=== PATIENT | female | born 1980 | race Caucasian/White ===

== ENCOUNTER 2017-06-04 21:21 | Emergency (ER) | payer OTHER, MEDICAID ==
[~2017-06-04] VITALS: Ht 154.9 cm; Wt 55.3 kg
[~2017-06-04 21:21] MED LIST: ALPRAZOLAM0.5 M1; ALPRAZOLAM1 MG PO; ALPRAZOLAM2 MG PO; BACTRIM DS 8001 TA1 PO; CHANTIX0.5 MG PO; CYANOCOBAL1000 MCG/1; DICLOFENAC 50MG50 MG PO; DICLOFENAC SODI75 M2 PO; ETODOLAC400 MG PO; FOLTX PO; GABAPENTIN800 MG; GABAPENTIN800 MG PO; GUMMI BEAR MUL1 EACH PO; HYDROMORPHONE2 MG PO; HYDROXYZINE HYD50 M1 PO; HYDROXYZINE50 MG PO; Hydroxyzine10 MG; Hydroxyzine10 MG PO; INDERAL10 MG PO; MEDROL 4MG. DOSE4 MG PO; NAPROSYN500 M1 PO; NAPROXEN SODIU500 MG PO; NITROGLYCERIN0.4 MG SL; NITROSTAT0.6 MG SL; NORCO 325 MG-51 TAB PO; NORVASC 10MG. T10 MG PO; OXYCODONE HCL15 MG PO; PAXIL20 MG PO; PERCOCET1 TA1 PO; PROPRANOLOL HCL20 MG PO; QUETIAPINE FUMA50 M1 PO; ROBAXIN500 M1 PO; SEROQUEL 100MG100 MG PO; TYLENOL WITH CO1 TA1 PO; VITAMIN E100 UNI2; ZOLOFT 50MG TAB50 MG PO
[2017-06-04] MEDS ORDERED: BACTRIM 400 MG-1 TAB PO (21:36)
[2017-06-04] MEDS ORDERED: Oxycodone5 MG NG (21:36)
--- OUTSIDE RECORDS SUMMARY | 2017-06-04 21:47 | External Medical Summary Rpt | CCD ---
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 AM 00 03 04 30 30 00 EA Ac LO 37 -0 -[address] ti DI 85 9- 7- 00 00 SI ve PI 21 20 20 47 DE NE 00 17 17 91 5 03 PH BE AR SY MA LA CY TE OF 10 CY NT MG HI AN TA A B IN C CE 65 03 04 20 10 00 EA Ac PH 86 -0 -[address] ti AL 20 9- 7- 00 00 SI ve EX 01 20 20 47 DE IN 90 17 17 90 5 86 PH 50 AR 0 MA MG CY CA OF PS CY UL NT E HI AN A IN C AL 00 03 04 60 30 00 EA Ac NM 78 -0 -[address] ti AZ 11 9- 7- 00 00 SI ve OL 07 20 20 47 DE AM 91 17 17 90 1 0 87 PH AR MG MA CY TA BL OF ET CY NT HI AN A IN C VA 65 02 03 4. 2 00 CL Ac LA 86 -0 -1 00 00 IN ti CY 20 9- 0- 0 00 IC ve CL 44 20 20 41 OV 83 17 17 54 PH IR 0 69 AR MA HC CY L 50 0 MG TA BL ET NM 00 02 03 20 5 00 CL Ac OM 59 -1 -1 .0 00 IN ti ET 15 0- 0- 00 00 IC ve HEWITT 30 20 20 42 ZI 71 17 17 18 PH NE 0 50 AR MA 25 CY MG TA BL ET NM 50 02 03 60 30 00 EA Ac OP 11 -0 -[address] ti RA 10 9- 0- 00 00 SI ve NO 46 20 20 47 DE LO 70 17 17 55 L 3 37 PH 10 AR MA MG CY TA OF BL CY ET NT HI AN A IN C SE 16 02 03 30 30 00 EA Ac RT 71 -0 -[address] ti RA 40 9- 0- 00 00 SI ve LI 61 20 20 47 DE NE 20 17 17 55 6 38 PH HC AR L MA 50 CY MG OF CY TA NT BL HI ET AN A IN C AM 00 02 03 30 30 00 EA Ac LO 37 -0 -[address] ti DI 85 9- 0- 00 00 SI ve PI 21 20 20 47 DE NE 00 17 17 55 5 39 PH BE AR SY MA LA CY TE OF 10 CY NT MG HI AN TA A B IN C AL 00 02 03 60 30 00 EA Ac NM 78 -0 -[address] ti AZ 11 9- 0- 00 00 SI ve OL 07 20 20 47 DE AM 91 17 17 55 1 0 40 PH AR MG MA CY TA BL OF ET CY NT HI AN A IN C 02 03 60 30 00 EA Ac BA 87 -0 -[address] ti PE 70 9- 0- 00 00 SI ve NT 22 20 20 47 DE IN 30 17 17 55 5 35 PH 30 AR 0 MA MG CY CA OF PS CY UL NT E HI AN A IN C AL 00 01 02 42 14 00 EA Ac NM 78 -2 -[address] ti AZ 11 6- 4- 00 00 SI ve OL 07 20 20 47 DE AM 91 17 17 38 1 0 81 PH AR MG MA CY TA BL OF ET CY NT HI AN A IN C GA 16 01 02 14 14 00 EA Ac BA 71 -2 -[address] ti PE 40 6- 4- 00 00 SI ve NT 66 20 20 47 DE IN 10 17 17 38 1 86 PH 10 AR 0 MA MG CY CA OF PS CY UL NT E HI AN A IN C IB 53 01 02 90 30 00 EA Ac UP 74 -2 -[address] ti RO 60 6- 4- 00 00 SI ve FE 46 20 20 47 DE N 50 17 17 38 60 5 87 PH 0 AR MG MA CY TA BL OF ET CY NT HI AN A IN C DI 00 01 02 30 15 00 EA Ac CL 22 -1 -[address] ti OF 82 4- 0- 00 00 SI ve EN 55 20 20 47 DE AC 09 17 17 24 6 41 PH SO AR D MA EC CY 50 OF CY MG NT HI TA AN B A IN C ESPINOZA 53 01 02 20 10 00 EA Ac LF 74 -1 -[address] ti AM 60 4- 0- 00 00 SI ve ET 27 20 20 47 DE HO 20 17 17 24 XA 5 43 PH ZO AR LE MA -T CY MP OF DS CY NT TA HI BL AN ET A IN C CI 16 01 02 20 10 00 EA Ac NM 71 -1 -[address] ti OF 40 2- 0- 00 00 SI ve LO 65 20 20 47 DE XA 20 17 17 22 CI 4 47 PH N AR HC MA L CY 50 0 OF MG CY NT TA HI B AN A IN C AL 00 01 02 42 14 00 EA Ac NM 78 -1 -[address] ti AZ 11 2- 0- 00 00 SI ve OL 07 20 20 47 DE AM 91 17 17 22 1 0 48 PH AR MG MA CY TA BL OF ET CY NT HI AN A IN C GA 16 01 02 14 14 00 EA Ac BA 71 -1 -[address] ti PE 40 2- 0- 00 00 SI ve NT 66 20 20 47 DE IN 10 17 17 22 1 52 PH 10 AR 0 MA MG CY CA OF PS CY UL NT E HI AN A IN C IB 53 01 02 40 10 00 EA Ac UP 74 -1 -[address] ti RO 60 2- 0- 00 00 SI ve FE 46 20 20 47 DE N 50 17 17 22 60 5 53 PH 0 AR MG MA CY TA BL OF ET CY NT HI AN A IN C NM 65 01 02 20 5 00 EA Ac OM 16 -1 -[address] ti ET 20 7- 0- 00 00 SI ve HEWITT 52 20 20 47 DE ZI 11 17 17 27 NE 1 75 PH AR 25 MA CY MG OF TA CY BL NT ET HI AN A IN C ESPINOZA 53 12 01 20 10 00 EA Ac LF 74 -2 -[address] ti AM 60 9- 7- 00 00 SI ve ET 27 20 20 47 DE HO 20 16 17 06 XA 5 14 PH ZO AR LE MA -T CY MP OF DS CY NT TA HI BL AN ET A IN C AL 00 12 01 28 14 00 EA Ac NM 78 -2 -[address] ti AZ 11 9- 7- 00 00 SI ve OL 08 20 20 47 DE AM 90 16 17 06 2 5 15 PH AR MG MA CY TA BL OF ET CY NT HI AN A IN C ET 00 12 01 20 10 00 EA Ac OD 18 -1 -[address] ti OL 50 9- 3- 00 00 SI ve AC 67 20 20 46 DE 50 16 17 94 40 1 71 PH 0 AR MG MA CY TA BL OF ET CY NT HI AN A IN C OX 53 12 01 6. 3 00 EA Ac YC 74 -1 -[address] ti OD 60 9- 3- 0 00 SI ve ON 20 20 20 46 DE E- 40 16 17 95 AC 1 01 PH ET AR AM MA IN CY OP HE OF N CY 10 NT -3 HI 25 AN A IN C NM 50 12 01 60 30 00 EA Ac OP 11 -2 -[address] ti RA 10 1- 3- 00 00 SI ve NO 46 20 20 46 DE LO 70 16 17 97 L 3 77 PH 10 AR MA MG CY TA OF BL CY ET NT HI AN A IN C AM 68 12 01 30 30 00 EA Ac LO 38 -2 -[address] ti DI 20 1- 3- 00 00 SI ve PI 12 20 20 46 DE NE 30 16 17 97 5 78 PH BE AR SY MA LA CY TE OF 10 CY NT MG HI AN TA A B IN C AM 68 12 01 14 14 00 EA Ac LO 38 -0 -[address] ti DI 20 8- 9- 00 00 SI ve PI 12 20 20 46 DE NE 30 16 17 81 5 45 PH BE AR SY MA LA CY TE OF 10 CY NT MG HI AN TA A B IN C SE 16 12 01 14 14 00 EA Ac RT 71 -0 -[address] ti RA 40 8- 9- 00 00 SI ve LI 61 20 20 46 DE NE 20 16 17 81 6 46 PH HC AR L MA 50 CY MG OF CY TA NT BL HI ET AN A IN C NM 50 12 01 28 14 00 EA Ac OP 11 -0 -[address] ti RA 10 8- 9- 00 00 SI ve NO 46 20 20 46 DE LO 70 16 17 81 L 3 47 PH 10 AR MA MG CY TA OF BL CY ET NT HI AN A IN C NM 68 12 01 20 5 00 CL Ac OM 38 -0 -0 .0 00 IN ti ET 20 8- 9- 00 00 IC ve HEWITT 04 20 20 41 ZI 11 16 17 38 PH NE 0 94 AR MA 25 CY MG TA BL ET VA 45 12 01 4. 2 00 CL Ac LA 96 -0 -0 00 00 IN ti CY 30 8- 9- 0 00 IC ve CL 55 20 20 41 OV 80 16 17 54 PH IR 8 69 AR MA HC CY L 50 0 MG TA BL ET OX 47 12 01 30 10 00 CL Ac YC 78 -0 -0 .0 00 IN ti OD 10 8- 9- 00 00 IC ve ON 23 20 20 41 E- 00 16 17 57 PH AC 5 16 AR ET MA AM CY IN OP HE N 10 -3 25 00 03 05 01 30 30 HO 99 CL Ac 37 -0 -0 .0 PK 34 AR ti 83 6- 7- 00 IN 35 KE ve 47 20 20 S [address] DE 1 UG RE K CO J IN C 49 02 04 01 90 30 HO 99 CL Ac 88 -1 -2 .0 PK 27 AR ti 40 2- 3- 00 IN 12 KE ve 77 20 20 S [address] CLIFFORD 5 UG RE K CO J IN C FL 50 03 04 01 30 30 HO 99 CL Ac UO 11 -0 -2 .0 PK 34 AR ti XE 10 6- 3- 00 IN 34 KE ve TI 64 20 20 S NE [address] DE 1 UG RE HC K L CO J 10 IN MG C CA PS UL E NM 68 01 04 01 40 10 HO 99 CA Ac OM 38 -1 -2 .0 PK 20 MP ti ET 20 6- 3- 00 IN 12 BE ve HEWITT 04 20 20 S LL ZI [address] NE 1 UG BE RR 25 CO Y A MG IN C TA BL ET 49 03 04 00 60 30 HO 99 CL Ac 88 -2 -0 .0 PK 42 AR ti 40 7- 9- 00 IN 14 KE ve 54 20 20 S [address] DE 0 UG RE K CO J IN C EN 60 03 04 00 20 3 HO 99 CL Ac DO 95 -2 -0 .0 PK 42 AR ti CE 10 7- 9- 00 IN 15 KE ve T 60 20 20 S 5- [address] CLIFFORD 32 5 UG RE 5 K TA CO J BL ET IN C OX 00 03 03 00 30 3 WI 26 CL Ac YC 60 -1 -2 .0 LS 31 AR ti OD 34 3- 6- 00 ON 61 KE ve ON 99 20 20 E- [address] SARMIENTO 8 UG RE ET K AM IN J IN C OP HE N 5- 32 5 53 03 03 00 30 10 WI 26 CL Ac 74 -1 -2 .0 LS 31 AR ti 60 3- 6- 00 ON 60 KE ve 13 20 [address] CLIFFORD 5 UG RE K IN J C VA 00 03 03 00 21 7 HO 99 CL Ac LT 17 -0 -1 .0 PK 34 AR ti RE 30 6- 2- 00 IN 36 KE ve X 56 20 20 S [address] CLIFFORD GM 4 UG RE K CA CO J PL ET IN C FL 00 03 03 00 1. 1 HO 99 CL Ac UC 17 -0 -1 00 PK 34 AR ti ON 25 6- 2- 0 IN 32 KE ve AZ 41 20 20 S OL [address] MADDOX 9 UG RE 15 K 0 CO J MG IN TA C BL ET FL 50 03 03 00 30 30 HO 99 CL Ac UO 11 -0 -1 .0 PK 34 AR ti XE 10 6- 2- 00 IN 34 KE ve TI 64 20 20 S NE [address] CLIFFORD 1 UG RE HC K L CO J 10 IN MG C CA PS UL E 00 03 03 00 30 30 HO 99 CL Ac 37 -0 -1 .0 PK 34 AR ti 83 6- 2- 00 IN 35 KE ve 47 20 20 S [address] CLIFFORD 1 UG RE K CO J IN C PO 24 03 03 00 10 10 HO 99 HEWITT Ac LY 20 -0 -1 .0 PK 34 RV ti MY 80 6- 2- 00 IN 37 EY ve XI 31 20 20 S N [address] BELLE B- 0 UG DI TM P CO EY E IN DR C OP S PE 00 02 02 00 28 7 HO 99 AL Ac NI 78 -1 -2 .0 PK 26 LE ti CI 11 1- 6- 00 IN 87 N ve LL 65 20 20 S BR IN [address] GALO 1 UG DO VK N CO I 50 0 IN MG C TA BL ET 00 02 02 00 24 4 WI 26 MO Ac 59 -2 -2 .0 LS 02 RR ti 10 0- 6- 00 ON 73 IS ve 54 20 [address] REAVES 5 UG BE RT IN H C 49 02 02 00 90 30 HO 99 CL Ac 88 -1 -2 .0 PK 27 AR ti 40 2- 6- 00 IN 12 KE ve 77 20 20 S [address] CLIFFORD 5 UG RE K CO J IN C ME 59 02 02 00 1. 90 CL [address] 76 -1 -2 00 IN 74 AR ti OX 24 0- 6- 0 IC 09 KE ve YP 53 20 20 RO 70 09 09 PH DE GE [address] MA K ER CY J ON E 15 0 MG /M L FL 68 02 02 00 1. 1 CL 18 CL Ac UC 46 -1 -2 00 IN 74 AR ti ON 20 0- 6- 0 IC 08 KE ve AZ 10 20 20 OL 34 09 09 PH DE E 0 AR RE 15 MA K 0 CY J MG TA BL ET TR 65 02 02 00 30 5 HO 99 CL Ac AM 16 -1 -2 .0 PK 27 AR ti AD 20 2- 6- 00 IN 14 KE ve OL 62 20 20 S [address] CLIFFORD HC 1 UG RE L K 50 CO J MG IN C TA BL ET TR 65 01 02 00 30 7 SO 30 Ac AM 16 -2 -1 .0 PE 43 LL ti AD 20 8- 2- 00 RS 34 AF ve OL 62 20 20 LO 71 09 09 FA R HC 1 AR OS L LY IA [address] M MG UG TA BL ET OX 00 01 02 00 40 3 CV 49 CA Ac YC 40 -2 -1 .0 S 96 MP ti OD 60 4- 2- 00 PH 88 BE ve ON 51 20 20 AR LL E- 20 09 09 MA AC 5 CY BE ET RR AM #3 Y IN 01 A OP 6 HE N 5- 32 5 AZ 59 01 02 00 6. 5 CV 49 CA Ac IT 76 -2 -1 00 S 96 MP ti HR 23 4- 2- 0 PH 89 BE ve OM 06 20 20 AR LL YC 00 09 09 MA IN 1 CY BE RR 25 #3 Y 0 01 A MG 6 TA BL ET 00 01 02 00 30 30 CV 49 CA Ac 37 -2 -1 .0 S 96 MP ti 83 4- 2- 00 PH 90 BE ve 47 20 20 AR LL 50 09 09 MA 1 CY BE RR #3 Y 01 A 6 IB 55 01 02 00 40 10 CV 49 CA Ac UP 11 -2 -1 .0 S 96 MP ti RO 10 4- 2- 00 PH 91 BE ve FE 68 20 20 AR LL N 40 09 09 MA 80 5 CY BE 0 RR MG #3 Y 01 A TA 6 BL ET FL 50 01 02 00 30 30 HO 99 CL Ac UO 11 -3 -1 .0 PK 23 AR ti XE 10 0- 2- 00 IN 36 KE ve TI 64 20 20 S NE [address] CLIFFORD 1 UG RE HC K L CO J 10 IN MG C CA PS UL E 49 01 02 00 40 13 HO 99 CL Ac 88 -3 -1 .0 PK 23 AR ti 40 0- 2- 00 IN 37 KE ve 77 20 20 S [address] CLIFFORD 5 UG RE K CO J IN C NM 68 01 01 00 40 10 HO 99 CA Ac OM 38 -1 -3 .0 PK 20 MP ti ET 20 6- 0- 00 IN 12 BE ve HEWITT 04 20 20 S LL ZI [address] MAXWELL 1 UG BE RR 25 CO Y A MG IN C TA BL ET 59 11 01 00 30 30 CL 18 Ac 63 -2 -3 .0 IN 56 LL ti 00 0- 0- 00 IC 97 AF ve 41 20 20 LO 43 08 09 PH R 5 AR OS MA IA CY S M CL 00 01 01 00 15 8 CL 18 Ac OT 16 -1 -3 .0 IN 56 LL ti RI 80 3- 0- 00 IC 93 AF ve MA 25 20 20 LO ZO 81 09 09 PH R LE 5 AR OS -B MA IA ET CY S AM M ET HEWITT SO NE CR M AZ 50 01 01 00 6. 5 CL 18 Ac IT 11 -1 -3 00 IN 56 LL ti HR 10 3- 0- 0 IC 94 AF ve OM 78 20 20 LO YC 76 09 09 PH R IN 6 AR OS MA IA 25 CY S 0 M MG TA BL ET 60 01 01 00 24 12 CL 18 Ac 25 -1 -3 0. IN 56 LL ti 80 3- 0- 00 IC 95 AF ve 23 20 20 0 LO 91 09 09 PH R 6 AR OS MA IA CY S M 60 11 12 00 24 12 CA 65 Ac 25 -2 -0 0. RL 02 LL ti 80 5- 4- 00 IS 90 AF ve 23 20 20 0 LE LO [address] OS UG IA S IN M C 59 11 12 00 30 30 CA 65 Ac 63 -2 -0 .0 RL 00 LL ti 00 0- 4- 00 IS 92 AF ve 41 20 20 LE LO [address] OS UG IA S IN M C AZ 00 11 12 00 6. 5 CA 65 Ac IT 09 -2 -0 00 RL 02 LL ti HR 37 5- 4- 0 IS 89 AF ve OM 14 20 20 LE LO YC 61 [address] OS UG IA 25 S 0 IN M MG C TA BL ET PE 00 11 12 00 30 7 CA 65 Ac NI 78 -2 -0 .0 RL 00 LL ti CI 11 0- 4- 00 IS 91 AF ve LL 65 20 20 LE LO IN [address] OS VK UG IA S 50 IN M 0 C MG TA BL ET Procedures Procedure DOS Code Location Performer Comment [facility] 5451 [facility] LYSIS 9 [facility] PERITONEA L ADHESIONS OTH BILAT 6629 [facility] ENDO 9 [facility] DE[facility]/O INC INC CCLUSION FALLOP TUBES LOW 741 [facility] CERVICAL 9 [facility] SECTION Encounters Encounter Start End Date Code Location Performer Type Date [facility] - 7 7 [facility] - 7 7 [facility] JES[facility] - 7 7 [facility]ES[facility] - 7 7 [facility] - 7 7 [facility] - 7 7 [facility]ES[facility] - 7 7 [facility]ES[facility] - 7 7 [facility] - 7 7 [facility] - 7 7 [facility] JESUS - 7 7 [facility] - 7 7 [facility] - 7 7 [facility] - 7 7 [facility] - 7 7 [facility] - 6 6 [facility] - 6 6 [facility] - 6 6 [facility] - 6 6 [facility] - 6 6 [facility] - 6 6 [facility] - 6 6 [facility] - 6 6 [facility] - 6 6 [facility]ES[facility] - 6 6 [facility] - 6 6 [facility] - 6 6 [facility] - 6 6 [facility] - 5 5 [facility] - 5 5 [facility] - 9 9 [facility] [place] - 9 9 [facility] [place] [address] [facility] [place] [address] [facility] [place] [address] [facility]
--- OUTSIDE RECORDS SUMMARY | 2017-06-04 21:47 | External Medical Summary Rpt | CCD ---
Author Author , RIGOBERTO Organization DANIELALYSSA Address Unknown Phone Care Team Providers Care Tarper Name Role Phone [employer] Unavailable Unavailable INC, [employer] JOSSY PARIKH, KATI, Unavailable Unavailable BENSON DAVIS Unavailable Unavailable [facility] Un[facility] Un[facility], [facility] BRIAN RIVERA, Unavailable Unavailable BRIAN RIVERA [facility], Unavailable Unavailable [facility] JONES MILES, Unavailable Unavailable [facility] Unavailable [facility], Unavailable [facility]available [facility] Unavailable Unavailable [place], [facility] Unavailable Unavailable [id number], Unavailable Unavailable [facility] Unavailable Unavailable [facility]ATION [facility], [facility] Unavailable Unavailable INC, [facility] Unavailable Unavailable HOSPITAL P, [facility], Unavailable Unavailable [facility], Unavailable Unavailable [facility] ARNAV MCNALLY Unavailable Unavailable [facility], [facility] Un[facility], [facility] Unavailable Unavailable [facility], [facility] SHAILESH CASH Unavailable Unavailable SHAILESH LOW, Unavailable Unavailable LAURA KIM, Unavailable Unavailable LAURA METZGER ROBERT, Unavailable Unavailable EMILIANO VALENCIA [facility] Unavailable Unavailable AMBULANCE SE, [facility] NICHOLAS, Unavailable Unavailable NICHOLAS VALDES EVELYN [facility] Unavailable [facility] KALEN RIVAS MD Unavailable Unavailable CONSULTING SERVKALEN MD CON[facility], Unavailable Unavailable [facility], [facility] Unavailable Unavailable LAB, [facility]OLOGY & [facility], Unavailable [facility]available [facility] Unavailable Unavailable [facility], [facility], Unavailable Unavailable [facility] THANIA LUI, Unavailable Unavailable THANIA LUI [facility], Unavailable Unavailable [facility] Purpose Continuity of Care Document - 05-10-2008 through 2016 Problems Code Diagnosis DOS Provider Status Z0100 ENCOUNTER 04-16-2017 [facility] EXAM EYES & VISION W/O ABNORMAL FIND R69 ILLNESS 03-05-2017 [facility] UNSPECIFIED TRANSPORTAT ION SER L600 INGROWING 02-17-[address] [facility] NAIL PHYSICIANS GROUP [id number] PAIN IN 01-27-2017 [facility] [id number] SPRAIN 01-27-2017 [facility]NSPECIFIED [facility] SITE RT INC KNEE INITIAL ENCNTR H8263ND UNS INJURY 01-27-2017 [facility] RT LOWER MEDICAL LEG INITIAL IMAGING ASS ENCOUNTER M542 CERVICALGIA 01-02-2017 [facility] M545 LOW BACK 01-02-2017 [facility] PAIN [facility] INC M791 MYALGIA 01-02-2017 [facility], [facility] G541 LUMBOSACRAL 12-30-2016 [facility] PLEXUS [facility] DISORDERS INC U16550 PAIN IN 12-30-2016 [facility] RIGHT LEG [facility] INC S19805 PAIN IN 12-27-2016 [facility]IP [facility] R200 ANESTHESIA 12-27-2016 [facility] OF SKIN [facility]ICAL [facility] R0781 PLEURODYNIA 12-11-[address] [facility] PHYSICIANS GROUP R079 CHEST PAIN 12-07-2016 [facility] UNSPECIFIED [facility]ICAL IM[facility]ING ASS [id number] CONTUSION 12-07-2016 [facility] LEFT FRONT PHYSICIANS, WALL THORAX PLLC INITIAL ENC M461 SACROILIITI 11-04-2016 [facility] S NOT [facility] ELSEWHERE INC CLASSIFIED [id number] MUSCLE 10-22-[address] [facility] WASTING & PHYSICIANS ATROPHY NEC GROUP RIGHT THIGH V98138 MUSCLE 10-22-[address] [facility] WASTING & PHYSICIANS ATROPHY NEC GROUP RIGHT LOWER LEG K13329 OTHER LONG 10-15-2016 [facility] TERM [facility] CURRENT INC DRUG THERAPY W06896 PAIN IN 10-05-2016 [facility] LEFT ANKLE [facility] INC M5412 RADICULOPAT 09-30-2016 [facility] HY CERVICAL [facility] REGION INC M5416 RADICULOPAT 09-30-2016 [facility] HY LUMBAR [facility] REGION INC M5431 SCIATICA 09-12-[address] [facility] RIGHT SIDE PHYSICIANS GROUP M549 DORSALGIA 09-12-[address] [facility] UNSPECIFIED PHYSICIANS GROUP R350 FREQUENCY 09-12-2016 [facility] MICTURITION INC R102 PELVIC AND 08-16-[address] [facility] PERINEAL PHYSICIANS PAIN GROUP I10 ESSENTIAL 07-20-2016 [facility] HYPERTENSIO INC N K71499 PAIN IN 07-20-2016 [facility] LEFT [facility]IP [facility] M533 SACROCOCCYG 07-20-2016 [facility] EAL MEDICAL DISORDERS IMAGING ASS NEC N3000 ACUTE 07-20-2016 [facility] CYSTITIS [facility] WITHOUT INC HEMATURIA X918MWU CONTUSION 07-20-2016 [facility] [place] LOWER BACK [facility] & PELVIS INC INITIAL ENCOUNTER H7235CT CONTUSION 07-20-2016 [facility] OF LEFT HIP MEM [facility]OS[facility] INITIAL INC ENCOUNTER Z720 TOBACCO USE 07-20-2016 [facility] INC K15424 PAIN IN 07-04-2016 [facility] ANKLE [facility] I79158 PAIN IN 07-04-2016 [facility] RIGHT FOOT [facility]ICAL [facility]ING ASS N390 URINARY 07-04-2016 [place] TRACT [facility] INFECTION INC SITE NOT SPECIFIED P76852C UNSPECIFIED 07-04-2016 [facility] INJURY [facility]ICAL RIGHT ANKLE IMAGING ASS INITIAL ENCOUNTER X62675X UNSPECIFIED 07-04-2016 [facility] INJURY MEDICAL RIGHT FOOT IMAGING ASS INITIAL ENCOUNTER Y82257 PAIN IN 06-27-2016 [place] RIGHT LOWER MEDICAL LEG IMAGING ASS E876 HYPOKALEMIA 06-15-2016 [facility] X00815 EPILEPSY 06-15-2016 [facility] UNS NOT N EMERGENCY INTRACT W/O PHYS STATUS EPILEPTICUS R569 UNSPECIFIED 06-15-2016 [facility] CONVULSIONS AMBULANCE SE [id number] TOXIC 06-15-2016 [facility] SUBSTANCE AMBULANCE UNDET SE INITIAL ENCNTR R2241 LOCALIZED 06-08-2016 [place] [facility] RIGHT LOWER LIMB U4900LP UNS OCC OTH 06-08-2016 [facility] MV INJ NT ACC INIT N33739 ACUTE EMBO 06-07-[address] [facility] THROMB UNS PHYSICIANS DEEP VEINS GROUP UNS LOW EXTREM R600 LOCALIZED 06-07-[address] [facility] EDEMA PHYSICIANS GROUP R209 UNSPECIFIED 06-02-2016 [facility], DISTURBANCE PLLC S OF SKIN SENSATION R233 SPONTANEOUS 06-02-2016 [facility] ECCHYMOSES [facility] R51 HEADACHE 06-02-2016 [facility] H0310LG CONTUSION 06-02-2016 [facility] OTHER PART PHYSICIANS, OF HEAD PLL INITIAL ENCOUNTER V01033H UNSPECIFIED 06-02-2016 [facility] SPRAIN PHYSICIANS, RIGHT HIP PLL INITIAL ENCOUNTER A74309A UNSPECIFIED 06-02-2016 [place] INJURY MEDICAL RIGHT HIP IMAGING ASS INITIAL ENCOUNTER N800 ENDOMETRIOS 05-06-2016 [facility] IS OF LLC UTERUS N920 EXCESS & 05-06-[address] [facility] FREQUENT PHYSICIANS MENSTRUATIO GROUP N W/REGULAR CYCLE N938 OTHER SPEC 05-06-2016 [facility] ABNORMAL ANESTH OF UTERINE & THE BLUE VAGINAL BLEEDING N9410 UNSPECIFIED 05-06-2016 [facility] DYSPAREUNIA [facility] P N944 PRIMARY 05-06-[address] [facility] DYSMENORRHE PHYSICIANS A GROUP N946 DYSMENORRHE 05-06-2016 [facility] [place] P M91568 CALCIFIC 05-03-2016 [facility] TENDINITIS PHYSICIANS, RIGHT UPPER [facility] ARM N57528 PAIN IN 05-03-2016 [facility] RIGHT UPPER MEDICAL ARM IMAGING ASS M7989 OTHER 05-03-2016 [facility] SPECIFIED MEDICAL SOFT TISSUE IMAGING ASS DISORDERS N736 FEMALE 05-03-2016 [facility] PELVIC [facility] PERITONEAL INC ADHESIONS POSTINFECTI VE E62171R STRAIN 05-03-2016 [facility] TECHNOLOGIE TENDON S INC TRICP RT ARM INIT ENC O2579HL UNS INJURY 05-03-2016 [place] RT SHOULDER MEDICAL UPPER ARM IMAGING ASS INITIAL ENCNTR L59171 ENCOUNTER 05-03-2016 [facility] FOR OTHER MEM [facility] PREPROCEDUR INC AL EXAMINATION G894 CHRONIC 04-04-2016 [facility] LEN PAIN SYNDROME N831 CORPUS 04-03-[address] [facility] LUTEUM CYST PHYSICIANS GROUP N926 IRREGULAR 04-03-2016 [facility] MENSTRUATIO [facility] N INC UNSPECIFIED N941 DYSPAREUNIA 04-03-[address] 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 N PHYSICIANS UNSPECIFIED GROUP K5730 DIVERTICULO 02-21-2016 [facility] LG MEDICAL INTEST W/O IMAGING ASS PERF/ABSC W/O BLEED N8320 UNSPECIFIED 02-21-2016 [place] OVARIAN MEDICAL CYSTS IMAGING ASS N888 OTH SPEC 02-21-2016 [place] NONINFLAMMA MEDICAL TORY IMAGING ASS DISORDERS CERVIX UTERI R1084 GENERALIZED 02-21-2016 [facility] ABDOMINAL PHYSICIANS, PAIN PLLC R140 ABDOMINAL 02-21-2016 [place] DISTENSION MEDICAL GASEOUS IMAGING ASS R109 UNSPECIFIED 02-20-2016 [facility] ABDOMINAL [facility] PAIN INC R197 DIARRHEA 02-20-2016 [facility] UNSPECIFIED PHYSICIANS, PLLC Z5329 PROC & [place] 02-20-2016 [facility] NOT CARRIED [facility] OUT INC PATIENTS OTH REASON G959 DISEASE OF 01-24-2016 [facility] UNSPECIFIED M5032 OTH CERV 01-24-2016 [facility] [place] 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 HERNIA PHYSICIANS WITHOUT GROUP OBSTRUCTION OR GANGRENE R1011 RIGHT UPPER 06-26-2015 [facility] QUADRANT MEDICAL PAIN IMAGING ASS R1900 INTRA-ABD & 06-26-2015 [place] PELVIC MEDICAL SWELLING IMAGING ASS [facility] [facility] [place] UNS SITE R1909 OTH 06-26-2015 [facility] INTRA-ABD & MEM [facility] PELVIC INC SWELLING [place] [facility] [place] R1905 PERIUMBILIC 06-15-[address] [facility] SWELLING PHYSICIANS MASS OR GROUP [place] M797 FIBROMYALGI 05-15-2015 [facility] A [facility] INC M11633 PAIN IN 04-07-2015 [place] LEFT MEDICAL SHOULDER IMAGING ASS A5658JW CONTUSION 04-07-2015 [facility] THORAX PHYSICIANS, UNSPECIFIED PLLC INITIAL ENCOUNTER V323KAF UNSPECIFIED 04-07-2015 [place] INJURY OF MEDICAL THORAX IMAGING ASS INITIAL ENCOUNTER V0907IQ UNS INJURY 04-07-2015 [place] LT SHOULDER MEDICAL UPPER ARM IMAGING ASS INITIAL ENCNTR V5869 LONG-TERM 12-29-2014 [facility]ED (CURRENT) PHYSICIANS USE OF [place] OTHER MEDICATIONS 3670 HYPERMETROP 12-16-2014 SHAILESH IA GRE 63342 OTHER 11-25-2014 SHAILESH VISUAL GRE DISTORTIONS AND ENTOPTIC PHENOMENA 57809 PUNCTATE 11-25-2014 SHAIL[facility] KERATITIS GRE 60388 PAIN IN [place] 11-25-2014 SHAIL[facility] AROUND EYE GRE 95449 PRECORDIAL 11-11-2014 KALEN EVELYN PAIN CONSULTING SERV 53339 CHEST PAIN 07-18-2014 [facility] [place] UNSPECIFIED RADIOLOGY 7242 LUMBAGO 03-08-2014 [facility] [place] [facility] 5990 URINARY 10-15-2013 J[facility] TRACT INFECTION SITE NOT SPECIFIED 52498 ABDOMINAL 10-15-2013 JOSÉ MIKE PAIN, PERIUMBILIC V720 EXAMINATION 10-15-2013 SHAILESH OF EYES GRE AND VISION 83983 ABDOMINAL 09-30-2008 [facility]OMEN'S PAIN, LEFT HEALTH UPPER CLINIC OF QUADRANT [facility] 6146 PELVIC 09-16-2008 [facility] PERITONEAL [facility] ADHESIONS, INC FEMALE 36804 ABDOMINAL 09-16-2008 [facility] PAIN RIGHT MEM HOS[facility] LOWER INC QUADRANT V252 STERILIZATI 09-16-2008 [facility]OMEN'S ON HEALTH CLIN[facility] OF [facility] V2509 OTH GENERAL 09-15-2008 [facility] CNSL&ADVICE INC CONTRACEPT MANAGEMENT V242 ROUTINE 09-14-2008 WOMEN'S HEALTH FOLLOW-UP CLINIC OF [facility] V7231 ROUTINE 09-14-2008 WOMEN'S GYNECOLOGIC HEALTH AL CLINIC OF EXAMINATION [facility] 23719 DENTAL 08-26-2008 EMILIANO VALENCIA DMD EXTENDING PSC INTO DENTINE V2549 SURVEILLANC 08-16-2008 WOMEN'S E OTH PREV HEALTH [facility] CLINIC OF [facility] 7634 FETUS OR 07-29-2008 [facility] AFFECTED BY SPECIALISTS [facility] DELIVERY 91531 COMPL L&D 07-29-2008 [facility] AFFCT FETUS/NB SPECIALISTS [facility] PASSAGE DUR DEL V3000 SINGLE 07-29-2008 [facility] W/O V3001 SINGLE 07-29-2008 [facility] SPECIALISTS DELIV BY [facility] V502 ROUTINE OR 07-29-2008 KAMRYN RIVERA CIRCUMCISIO N 81147 PLACENTA 07-27-2008 [facility] PREVIA [facility] [email or web address] WITHOUT HEMORRHAGE WITH DELIVERY 13437 OTHER SPEC 07-27-2008 [facility] COMPLICATIO EAST N W/DELIVERY 18172 TOBACCO USE 07-27-2008 [facility] D/O COMP EAST PG CHILDBIRTH/ PP DELIVERED 36809 PREV C/S 07-27-2008 [facility] DELIV DELIV ANESTHESIA W/WO PSC MENTION ANTPRTM COND 11251 PREVIOUS 07-27-2008 MIGUEL C-SECT TORRES A DELIVERY ANTPRTM COND/COMP 11715 INFECTION 07-27-2008 NEW OF AMNIOTIC [facility] PSC DELIVERED 49125 C/S DELIV 07-27-2008 M[facility]EL W/O INDICAT TORRES A DELIV W/WO ANTPRTM COND V237 INSUFFICIEN 07-27-2008 [facility] T [email or web address] CARE V270 OUTCOME OF 07-27-2008 NEW DELIVERY [facility] PSC LIVEBORN 00635 TOB USE D/O 07-22-2008 MARYCHUY RIVERA PG TORRES A /PP ANTEPARTM COND/COMP V2389 SUPERVISION 07-22-2008 MIGUEL, OF OTHER TORRES A HIGH-RISK V284 07-22-2008 M[facility]EL [place] [address] LATE 07-20-2008 [facility] VOMITING OF [facility] [email or web address]] ANTEPARTUM 12542 OTH CURRENT 07-20-2008 [facility] ELSW ANTPRTM 96702 DIARRHEA 07-20-2008 [facility] EAST 462 ACUTE 07-19-2008 [facility], PHARYNGITIS THANIA Barrera 16914 THREATENED 07-04-2008 [facility] PREMATURE [facility] [email or web address] LABOR ANTEPARTUM 45644 UNSPEC 06-16-2008 MIGUEL, HEMORRHAGE TORRES A EARLY ANTEPARTUM 90280 OTHER 06-16-2008 MIGUEL, SPECIFED TORRES A COMPLICATIO N ANTEPARTUM 91772 UNS 06-16-2008 MIGUEL, ABNORM MGMT TORRES A MOTH ANTPRTM COND/COMP V221 SUPERVISION 06-16-2008 PATHOLOGY & OF OTHER CYTOLOGY NORMAL LAB 4659 ACUTE URIS 05-31-2008 [place], OF THANIA M UNSPECIFIED SITE 38235 ABNORMAL 05-27-2008 LAB [facility]ON[facility] [employer] TOLERANCE ANTEPARTUM 68361 ABNORMAL 05-25-2008 MIGUEL MTRN GLU TORRES A TOLERNC W/DELIV W/CURRENT PPC 47575 HEMORRHAGE 05-10-2008 MIGUEL, FROM TORRES A PLACENTA [...] 0 MG #5 91 TA BL ET ME 23 10 11 90 30 00 WA [...] 17 [address] ME AZ OP A PH 0. AR 05 [...] 17 17 39 E 5 69 PH ME AR OP MA CY 50 #5 MC [...] 09 10 30 30 00 CA Ac ME 22 -2 -2 .0 00 L- ti [...] 1 S MG TA BL ET SL ME 23 09 10 90 30 00 CA [...] ET CY NT SL HI AN A ME 23 08 09 90 30 00 WA [...] 08 09 20 10 00 WA Ac ME 16 -0 -0 .0 00 L- ti [...] 08 09 90 30 00 WA Ac ME 22 -0 -0 .0 00 L- ti [...] TE #5 10 91 MG TA B ME 23 07 08 90 30 00 WA Ac OP 15 -0 -0 .0 00 L- ti RA 50 6- 4- 00 07 MA ve NO 11 20 20 49 RT LO 00 17 17 24 L 1 57 PH 10 AR MA MG CY TA #5 BL 91 ET AL 00 07 08 90 30 00 WA Ac ME 22 -0 -0 .0 00 L- ti [...] 60 3- 1- 00 07 MA ve ME 00 20 20 49 RT ED 10 17 17 53 NI 3 26 PH SO AR LO MA NE CY 4 #5 MG 91 DO SE PK NA 65 06 07 10 5 00 WA Ac ME 16 -2 -2 .0 00 L- ti [...] TE #5 50 91 MG TA B ME 23 06 07 90 30 00 WA [...] 12 11 89 30 00 WA Ac ME 22 -0 -0 .0 00 L- ti [...] 5 80 PH CE AR TA MA PR CY NO PH OF EN CY NT 5- HI 32 AN 5 A IN C AL 30 00 EA Ac ME 25 -1 -[address] ti [...] BL HI ET AN A IN C ME 50 04 05 90 30 00 EA Ac OP 11 -2 -[address] ti RA 10 6- 9- 00 SI ve NO 46 20 20 48 DE LO 70 17 17 50 L 3 60 PH 10 AR MA MG CY TA OF BL CY ET NT HI AN A IN C AL 67 04 05 90 30 00 EA Ac ME 25 -1 -[address] ti [...] NT E HI AN A IN C ME 50 03 04 90 30 00 EA [...] 03 04 60 30 00 EA Ac ME 78 -0 -[address] ti [...] L 50 0 MG TA BL ET ME 00 02 03 20 5 00 CL Ac OM 59 -1 -1 .0 00 IN ti ET 15 0- 0- 00 00 IC ve HEWITT 30 20 20 42 ZI 71 17 17 18 PH NE 0 50 AR MA 25 CY MG TA BL ET ME 50 02 03 60 30 00 EA [...] 02 03 60 30 00 EA Ac ME 78 -0 -[address] ti [...] 01 02 42 14 00 EA Ac ME 78 -2 -[address] ti [...] 01 02 20 10 00 EA Ac ME 71 -1 -[address] ti OF 40 2- 0- 00 00 SI ve LO 65 20 20 47 DE XA 20 17 17 22 CI 4 47 PH N AR HC MA L CY 50 0 OF MG CY NT TA HI B AN A IN C AL 00 01 02 42 14 00 EA Ac ME 78 -1 -[address] ti [...] CY NT HI AN A IN C ME 65 01 02 20 5 00 EA [...] 12 01 28 14 00 EA Ac ME 78 -2 -[address] ti [...] -3 HI 25 AN A IN C ME 50 12 01 60 30 00 EA [...] BL HI ET AN A IN C ME 50 12 01 28 14 00 EA Ac OP 11 -0 -[address] ti RA 10 8- 9- 00 00 SI ve NO 46 20 20 46 DE LO 70 16 17 81 L 3 47 PH 10 AR MA MG CY TA OF BL CY ET NT HI AN A IN C ME 68 12 01 20 5 00 CL [...] IN MG C CA PS UL E ME 68 01 04 01 40 10 HO [...] 71 09 09 FA R HC 1 PR OS L LY IA [address] [...] RE K CO J IN C ME 68 01 01 00 40 10 HO [...] LAPAROSCO 5451 [facility] L[facility] PIC LYSIS 9 [facility]OSP OF [facility] INC PERITONEA L ADHESIONS OTH BILAT 6629 [facility] LEE ENDO 9 [facility] DESTRUC/O INC INC CCLUSION FALLOP TUBES LOW 741 [facility] CERVICAL 9 [facility] SECTION Encounters Encounter Start End Date Code Location Performer Type Date [facility] J[facility]US - 7 7 [facility] JESUS - 7 7 [facility] - 7 7 [facility] - 7 7 [facility] - 7 7 [facility] - 7 7 [facility] - 7 7 [facility] - 7 7 [facility] - 7 7 [facility] - 7 7 [facility] - 7 7 [facility] - 7 7 [facility]PATI[facility] - 7 7 [facility] - 7 7 [facility] - 7 7 [facility] - 6 6 [facility] - 6 6 [facility] - 6 6 [facility] - 6 6 [facility] - 6 6 [facility] - 6 6 [facility] - 6 6 [facility] - 6 6 [facility]PATIEN [facility] [place] - 6 6 [facility] JESUS - 6 6 [facility] - 6 6 [facility] - 6 6 [facility] - 6 6 [facility] - 5 5 [facility] - 5 5 [facility] - 9 9 [facility] [place] - 9 9 [facility] [place] [address] [facility] [place] [address] [facility] [place] [address] [facility]
--- OUTSIDE RECORDS SUMMARY | 2017-06-04 21:53 | External Medical Summary Rpt | CCD ---
Author Author , RIGOBERTO Organization RIGOBERTO Address Unknown Phone Care Team Providers Care Pediatric Intensive Physician Name Role Phone [employer] Unavailable Unavailable INC, [employer] JOSSY PARIKH, KATI, Unavailable Unavailable BENSON DAVIS Unavailable Unavailable [facility] Unavailable Unavailable [facility], [facility] BRIAN RIVERA, Unavailable Unavailable BRIAN RIVERA [facility], Unavailable Unavailable [facility] JONES MILES, Unavailable Unavailable JONES MIL[facility] Unavailable [facility], Unavailable Unavailable [facility] Un[facility] [place] [place] Unavailable Unavailable [id number], [facility]available [facility]available [id number] Unavailable Unavailable [facility]ATION [facility], [facility] Un[facility] Unavailable INC, [facility] Unavailable Unavailable HOSPITAL P, [facility], Unavailable Unavailable [facility], Unavailable Unavailable [facility] ARNAV MCNALLY Unavailable Unavailable [facility] Un[facility], [facility] SHAILESH CASH Unavailable Unavailable SHAILESH LOW, Unavailable Unavailable LAURA KIM, Unavailable Unavailable LAURA METZGER ROBERT, Unavailable Unavailable EMILIANO VALENCIA [facility] Unavailable Unavailable AMBULANCE SE, [facility] NICHOLAS, Unavailable Unavailable NICHOLAS VALDES EVELYN [facility] KALEN RIVAS MD Unavailable Unavailable CONSULTING SERVKALEN MD [facility], Unavailable [facility]available [facility] Unavailable Unavailable LAB, [facility]Y [facility], Unavailable Unavailable [facility] Unavailable Unavailable [facility] Unavailable [facility]available [facility] THANIA LUI, Unavailable Unavailable THANIA LUI [facility], Unavailable Unavailable [facility] Purpose Continuity of Care Document - 05-10-2008 through 2016 Problems Code Diagnosis DOS Provider Status Z0100 ENCOUNTER 04-16-2017 [place] EXAM EYES & VISION W/O ABNORMAL FIND R69 ILLNESS 03-05-2017 [facility] UNSPECIFIED TRANSPORTAT ION SER L600 INGROWING 02-17-2017 [facility] NAIL PHYSICIANS GROUP [id number] PAIN IN 01-27-2017 [place] [facility] [id number] SPRAIN 01-27-2017 [facility] SITE RT INC KNEE INITIAL ENCNTR [id number] UNS INJURY 01-27-2017 [place] RT LOWER MEDICAL LEG INITIAL IMAGING ASS ENCOUNTER M542 CERVICALGIA 01-02-2017 [facility] INC M545 LOW BACK 01-02-2017 [facility] PAIN [facility] INC M791 MYALGIA 01-02-2017 [facility], [facility] G541 LUMBOSACRAL 12-30-2016 [facility]US [facility] DISORDERS INC K07688 PAIN IN 12-30-2016 [facility] RIGHT LEG [facility] INC H08521 PAIN IN 12-27-2016 [place] [facility]IP [facility] R200 ANESTHESIA 12-27-2016 [place] OF SKIN [facility]ICAL [facility]ING ASS R0781 PLEURODYNIA 12-11-2016 [facility] PHYSICIANS GROUP R079 CHEST PAIN 12-07-2016 [place] UNSPECIFIED [facility]ING ASS [id number] CONTUSION 12-07-2016 [facility] LEFT FRONT PHYSICIANS, WALL THORAX [facility] INITIAL ENC M461 SACROILIITI 11-04-2016 [facility] S NOT [facility] ELSEWHERE INC CLASSIFIED [id number] MUSCLE 10-22-2016 [facility] WASTING & PHYSICIANS ATROPHY NEC GROUP RIGHT THIGH F26554 MUSCLE 10-22-2016 [facility] WASTING & PHYSICIANS ATROPHY NEC GROUP RIGHT LOWER LEG V45820 OTHER LONG 10-15-2016 [facility]M [facility] CURRENT INC DRUG THERAPY T62477 PAIN IN 10-05-2016 [facility] LEFT ANKLE [facility] INC M5412 RADICULOPAT 09-30-2016 [facility] HY CERVICAL [facility] REGION INC M5416 RADICULOPAT 09-30-2016 [facility] LUMBAR [facility] REGION INC M5431 SCIATICA 09-12-2016 [facility] RIGHT SIDE PHYSICIANS GROUP M549 DORSALGIA 09-12-2016 [facility] UNSPECIFIED PHYSICIANS GROUP R350 FREQUENCY 09-12-2016 [facility] MICTURITION INC R102 PELVIC AND 08-16-2016 [facility] PERINEAL PHYSICIANS PAIN GROUP I10 ESSENTIAL 07-20-2016 [facility] HYPERTENSIO INC N P30661 PAIN IN 07-20-2016 [place] LEFT HIP [facility] M533 SACROCOCCYG 07-20-2016 [place] EAL MEDICAL DISORDERS IMAGING ASS NEC N3000 ACUTE 07-20-2016 [facility] CY[facility]IS [facility] WITHOUT INC HEMATURIA Z901PGM CONTUSION 07-20-2016 [facility] LOWER BACK [facility] & PELVIS INC INITIAL ENCOUNTER [id number] CONTUSION 07-20-2016 [facility] OF LEFT HIP [facility] INITIAL INC ENCOUNTER Z720 TOBACCO USE 07-20-2016 [facility] INC G49728 PAIN IN 07-04-2016 [place] [facility] ANKLE [facility]ICAL [facility]ING [facility] S49497 PAIN IN 07-04-2016 [place] RIGHT FOOT [facility]ICAL IM[facility]ING ASS N390 URINARY 07-04-2016 [place] INFECTION INC SITE NOT SPECIFIED [id number] UNSPECIFIED 07-04-2016 [place] INJURY MEDICAL RIGHT ANKLE IMAGING ASS INITIAL ENCOUNTER V69637N UNSPECIFIED 07-04-2016 [place] INJURY MEDICAL RIGHT FOOT IMAGING ASS INITIAL ENCOUNTER T95832 PAIN IN 06-27-2016 [place] RIGHT LOWER MEDICAL LEG IMAGING ASS E876 HYPOKALEMIA 06-15-2016 [facility] P05758 EPILEPSY 06-15-2016 [facility] UNS NOT N EMERGENCY INTRACT W/O PHYS STATUS EPILEPTICUS R569 UNSPECIFIED 06-15-2016 [facility] CONVULSIONS AMBULANCE SE [id number] TOXIC 06-15-2016 [facility] SUBSTANCE AMBULANCE UNDET SE INITIAL ENCNTR R2241 LOCALIZED 06-08-2016 [place] [facility] SWELL[facility] SERV [place] [facility] RIGHT LOWER LIMB [id number] UNS OCC OTH 06-08-2016 [place] [facility] MV INJ NT ACC INIT O64320 ACUTE EMBO 06-07-2016 [facility] THROMB UNS PHYSICIANS DEEP VEINS GROUP UNS LOW EXTREM R600 LOCALIZED 06-07-2016 [facility] EDEMA PHYSICIANS GROUP R209 UNSPECIFIED 06-02-2016 [facility], DISTURBANCE PLLC S OF SKIN SENSATION R233 SPONTANEOUS 06-02-2016 [facility] ECCHYMOSES PHYSICIANS, PLLC R51 HEADACHE 06-02-2016 [facility] [id number] CONTUSION 06-02-2016 [facility] OTHER PART PHYSICIANS, OF HEAD [facility] INITIAL ENCOUNTER J15483H UNSPECIFIED 06-02-2016 [facility] SPRAIN PHYSICIANS, RIGHT HIP [facility] INITIAL ENCOUNTER U28598H UNSPECIFIED 06-02-2016 [place] INJURY MEDICAL RIGHT HIP IMAGING ASS INITIAL ENCOUNTER N800 ENDOMETRIOS 05-06-2016 [facility] OF [facility] UTERUS N920 EXCESS & 05-06-2016 [facility] FREQUENT PHYSICIANS MENSTRUATIO GROUP N W/REGULAR CYCLE N938 OTHER SPEC 05-06-2016 COMMUNITY ABNORMAL ANESTH OF UTERINE & THE BLUE VAGINAL BLEEDING N9410 UNSPECIFIED 05-06-2016 [facility] DYSPAREUNIA [facility] P N944 PRIMARY 05-06-2016 [facility] DYSMENORRHE PHYSICIANS A GROUP N946 DYSMENORRHE 05-06-2016 [facility] P V56736 CALCIFIC 05-03-2016 [facility] TENDINITIS PHYSICIANS, RIGHT UPPER [facility] ARM D76458 PAIN IN 05-03-2016 [place] RIGHT UPPER MEDICAL ARM IMAGING ASS M7989 OTHER 05-03-2016 [place] SPECIFIED MEDICAL SOFT TISSUE IMAGING ASS DISORDERS N736 FEMALE 05-03-2016 [facility]IC [facility] PERITONEAL INC ADHESIONS POSTINFECTI VE [id number] STRAIN 05-03-2016 [facility] TECHNOLOGIE TENDON S INC TRICP RT ARM INIT ENC Z8343JV UNS INJURY 05-03-2016 [place] RT SHOULDER MEDICAL UPPER ARM IMAGING ASS INITIAL ENCNTR H94464 ENCOUNTER 05-03-2016 [facility] FOR OTHER [facility] PREPROCEDUR INC AL EXAMINATION G894 CHRONIC 04-04-2016 [facility] LEN PAIN SYNDROME N831 CORPUS 04-03-2016 [facility] LUTEUM CYST PHYSICIANS GROUP N926 IRREGULAR 04-03-2016 [place] [facility]EN[facility]IO [facility] N INC UNSPECIFIED N941 DYSPAREUNIA 04-03-2016 [facility] PHYSICIANS GROUP K589 IRRITABLE 03-13-2016 [facility] BOWEL PHYSICIANS SYNDROME GROUP WITHOUT DIARRHEA K5900 CONSTIPATIO 03-13-2016 [facility] N PHYSICIANS UNSPECIFIED GROUP K5730 DIVERTICULO 02-21-2016 [place] SIS LG MEDICAL INTEST W/O IMAGING ASS PERF/ABSC W/O BLEED N8320 UNSPECIFIED 02-21-2016 [place] OVARIAN MEDICAL CYSTS IMAGING ASS N888 OTH SPEC 02-21-2016 [place] NONINFLAMMA MEDICAL TORY IMAGING ASS DISORDERS CERVIX UTERI R1084 GENERALIZED 02-21-2016 [facility] ABDOMINAL PHYSICIANS, PAIN PLLC R140 ABDOMINAL 02-21-2016 [place] DISTENSION MEDICAL GASEOUS IMAGING ASS R109 UNSPECIFIED 02-20-2016 [facility]AL [facility] PAIN INC R197 DIARRHEA 02-20-2016 [facility] UNSPECIFIED PHYSICIANS, PLLC Z5329 PROC & [place] 02-20-2016 [facility] NOT CARRIED [facility] OUT INC PATIENTS OTH REASON G959 DISEASE OF 01-24-2016 [facility] UNSPECIFIED M5032 OTH CERV 01-24-2016 [facility] [place] [facility] DEGENERATIO N MID-CERVICA L REGION M546 PAIN IN 01-24-2016 [facility] [place] THORACIC [facility] SPINE C752BYT FRACTURE 01-23-2016 [facility] LEN NASAL BONES INITIAL ENCOUNTER CLOSED FX J3489 OTHER 01-19-2016 [place] SPECIFIED MEDICAL DISORDERS IMAGING ASS NOSE AND NASAL SINUSES R1310 DYSPHAGIA 08-31-2015 [facility]NS[facility] INC Q58925 CELLULITIS 07-27-2015 [facility] OF PHYSICIANS, ABDOMINAL PLLC WALL K439 VENTRAL 07-18-2015 [facility] HERNIA PHYSICIANS WITHOUT GROUP OBSTRUCTION OR GANGRENE R1011 RIGHT UPPER 06-26-2015 [place] QUADRANT MEDICAL PAIN IMAGING ASS R1900 INTRA-ABD & 06-26-2015 [place] PELVIC MEDICAL SWELLING IMAGING ASS [place] UNS SITE R1909 OTH 06-26-2015 [facility] INTRA-ABD & MEM [facility]OS[facility] PELVIC INC SWELLING [place] R1905 PERIUMBILIC 06-15-2015 [facility] SWELLING PHYSICIANS MASS OR GROUP [place] M797 FIBROMYALGI 05-15-2015 [facility] A [facility] INC F43999 PAIN IN 04-07-2015 [place] LEFT MEDICAL SHOULDER IMAGING ASS B3637JG CONTUSION 04-07-2015 [facility] THORAX PHYSICIANS, UNSPECIFIED PLLC INITIAL ENCOUNTER F755HIE UNSPECIFIED 04-07-2015 [place] INJURY OF MEDICAL THORAX IMAGING ASS INITIAL ENCOUNTER W1795UG UNS INJURY 04-07-2015 [place] LT SHOULDER MEDICAL UPPER ARM IMAGING ASS INITIAL ENCNTR V5869 LONG-TERM 12-29-2014 [facility] (CURRENT) PHYSICIANS USE OF [place] OTHER MEDICATIONS 3670 HYPERMETROP 12-16-2014 [place] 8[address] OTHER 11-25-2014 SHAILESH VISUAL GRE DISTORTIONS AND ENTOPTIC PHENOMENA 42320 PUNCTATE 11-25-2014 SHAILESH KERATITIS GRE 26224 PAIN IN OR 11-25-2014 SHAILESH AROUND EYE GRE 07547 PRECORDIAL 11-11-2014 KALEN RIVAS PAIN CONSULTING SERV 01042 CHEST PAIN 07-18-2014 [facility] [place] UNSPECIFIED RADIOLOGY 7242 LUMBAGO 03-08-2014 [facility] [place] [facility] 5990 URINARY 10-15-2013 JOSÉ MIKE TRACT INFECTION SITE NOT SPECIFIED 65710 ABDOMINAL 10-15-2013 JOSÉ MIKE PAIN, PERIUMBILIC V720 EXAMINATION 10-15-2013 SHAILESH OF EYES GRE AND VISION 27866 ABDOMINAL 09-30-2008 WOMEN'S PAIN, LEFT HEALTH UPPER CLINIC OF QUADRANT [facility] 6146 PELVIC 09-16-2008 [facility] PERITONEAL [facility] ADHESIONS, INC FEMALE 67637 ABDOMINAL 09-16-2008 [facility] PAIN RIGHT MEM HOS[facility] LOWER INC QUADRANT V252 STERILIZATI 09-16-2008 WOMEN'S ON HEALTH CLINIC OF [facility] V2509 OTH GENERAL 09-15-2008 [facility] CNSL&ADVICE INC CONTRACEPT MANAGEMENT V242 ROUTINE 09-14-2008 WOMEN'S HEALTH FOLLOW-UP CLINIC OF [facility] V7231 ROUTINE 09-14-2008 WOMEN'S GYNECOLOGIC HEALTH AL CLINIC OF EXAMINATION [facility] 27946 DENTAL 08-26-2008 EMILIANO VALENCIA DMD EXTENDING PSC INTO DENTINE V2549 SURVEILLANC 08-16-2008 WOMEN'S E OTH PREV HEALTH [facility] CLINIC OF CONTRACEPT [facility] 7634 FETUS OR 07-29-2008 [facility] AFFECTED BY SPECIALISTS [facility] DELIVERY 95012 COMPL L&D 07-29-2008 [facility] FETUS/NB SPECIALISTS [facility] [facility] PASSAGE DUR DEL V3000 SINGLE 07-29-2008 MARILYN RIVERA [facility] W/O V3001 SINGLE 07-29-2008 [facility] SPECIALISTS DELIV BY [facility] V502 ROUTINE OR 07-29-2008 KAMRYN RIVERA [place]ISIO N 05785 PLACENTA 07-27-2008 [facility] PREVESSENTIA HEALTH WITHOUT HEMORRHAGE WITH DELIVERY 91052 OTHER SPEC 07-27-2008 [facility] COMPLICATIO [facility] [email or web address] N W/DELIVERY 89583 TOBACCO USE 07-27-2008 [facility] D/O COMP [facility] [email or web address] PG CHILDBIRTH/ PP DELIVERED 40976 PREV C/S 07-27-2008 [facility] DELIV DELIV ANESTHESIA W/WO PSC MENTION ANTPRTM COND 41251 PREVIOUS 07-27-2008 [facility] C-SECT TORRES A DELIVERY ANTPRTM COND/COMP 82983 INFECTION 07-27-2008 NEW OF AMNIOTIC [facility] PSC DELIVERED 65862 C/S DELIV 07-27-2008 [facility] W/O INDICAT TORRES A DELIV W/WO ANTPRTM COND V237 INSUFFICIEN 07-27-2008 [facility] T [email or web address] CARE V270 OUTCOME OF 07-27-2008 NEW DELIVERY [facility] PSC LIVEBORN 37661 TOB USE D/O 07-22-2008 [facility] COMP PG TORRES A /PP ANTEPARTM COND/COMP V2389 SUPERVISION 07-22-2008 [facility], OF OTHER TORRES A HIGH-RISK V284 07-22-2008 [facility] [place] [address] LATE 07-20-2008 [facility] VOMITING OF EAST ANTEPARTUM 04353 OTH CURRENT 07-20-2008 [facility] MAT CONDS [facility] [[email or web address]] CLASSIFIABL E ELSW ANTPRTM 52471 DIARRHEA 07-20-2008 [facility] EAST 462 ACUTE 07-19-2008 [place], PHARYNGITIS THANIA Barrera 06345 THREATENED 07-04-2008 [facility] PREMATURE [facility] [email or web address] LABOR ANTEPARTUM 70160 UNSPEC 06-16-2008 M[facility]UEL, HEMORRHAGE TORRES A EARLY ANTEPARTUM 93025 OTHER 06-16-2008 [facility], SPECIFED TORRES A COMPLICATIO N ANTEPARTUM 40700 UNS 06-16-2008 [facility], ABNORM MGMT TORRES A MOTH ANTPRTM COND/COMP V221 SUPERVISION 06-16-2008 PATHOLOGY & OF OTHER CYTOLOGY NORMAL LAB 4659 ACUTE URIS 05-31-2008 [place], OF THANIA M UNSPECIFIED SITE 61938 ABNORMAL 05-27-2008 LAB [facility] [employer] TOLERANCE ANTEPARTUM 43597 ABNORMAL 05-25-2008 [facility] MTRN GLU TORRES A TOLERNC W/DELIV W/CURRENT PPC 85546 HEMORRHAGE 05-10-2008 M[facility], FROM TORRES A PLACENTA PREVIA ANTEPARTUM Medications Na ND Rx Da Fi Fi Am Da Di Ph RX Ph St me C No te ll ll ou ys ag ar # ys at rm s nt no ma ic us Or Da si cy ia de te s n re d AM 68 10 11 30 30 00 [...] 0 MG #5 91 TA BL ET UT 23 10 11 90 30 00 WA [...] TE #5 50 91 MG TA B GA 00 10 11 90 30 00 WA Ac BA 22 -3 -2 .0 00 L- ti PE 82 1- 4- 00 04 MA ve NT 63 20 20 53 RT IN 71 17 17 28 1 31 PH 80 AR 0 MA MG CY TA #5 BL 91 ET ZU 54 10 11 12 12 00 CA Ac BS 12 -2 -2 .0 00 RL ti OL 30 7- 4- 00 00 IS ve V 98 20 20 78 LE 8. 63 17 17 31 6- [address] 2[address] UG 1 S MG TA BL ET SL SA 00 11 11 98 7 00 FO Ac LT 39 -0 -2 .[address] 56 1- 4- 49 00 TA ve AB 02 20 20 53 IN LE 15 17 [address] LS AZ A AD PH VA AR NC MA ED CY CR EA M UR 54 11 11 19 24 00 [...] 17 [address] UT AZ OP A PH 0. AR 05 MA % CY CR EA M ZU 54 10 [...] 1 S MG TA BL ET SL MO 57 10 11 30 30 00 WA Ac NT 23 -0 -0 .0 00 L- ti EL 70 6- 3- 00 07 MA ve UK 25 20 20 51 RT 53 17 17 39 T 0 70 PH SO AR D MA 10 CY MG #5 91 TA BL ET FL 60 10 11 16 30 00 WA Ac UT 43 -0 -0 .0 00 L- ti IC 20 6- 3- 00 07 MA ve 26 20 20 51 RT ON 41 17 17 39 E 5 69 PH UT AR OP MA CY 50 #5 MC 91 G SP RA Y ZU 54 09 10 14 7 00 CA Ac BS 12 -3 -2 .0 00 RL ti OL 30 0- 7- 00 00 IS ve V 98 20 20 78 LE 8. 63 17 17 16 6- [address] 2. UG 1 S MG TA BL ET SL AL 00 09 10 30 30 00 WA Ac UT 22 -2 -2 .0 00 L- ti AZ 82 8- 7- 00 04 MA ve OL 02 20 20 53 RT AM 95 17 17 23 0 29 PH 0. AR 5 MA MG CY TA #5 BL 91 ET GA 00 09 10 90 30 00 WA Ac BA 22 -2 -2 .0 00 L- ti PE 82 8- 7- 00 04 MA ve NT 63 20 20 53 RT IN 71 17 17 23 1 32 PH 80 AR 0 MA MG CY TA #5 BL 91 ET SE 68 09 10 30 30 00 WA Ac RT 64 [...] 1 S MG TA BL ET SL UT 23 09 10 90 30 00 WA Ac OP 15 -1 -1 .0 00 [...] ET CY NT SL HI AN A NA 65 08 09 20 10 00 WA Ac UT 16 -0 -0 .0 00 L- ti [...] 08 09 90 30 00 WA Ac UT 22 -0 -0 .0 00 L- ti AZ 82 3- 1- 00 04 MA ve OL 02 20 20 53 RT AM 95 17 17 05 0 83 PH 0. AR 5 MA MG CY TA #5 BL 91 ET UT 23 08 09 90 30 00 WA [...] TE #5 10 91 MG TA B ZU 54 08 08 20 10 00 HO Ac BS 12 -0 -2 .0 00 ME ti OL 30 2- 5- 00 04 TO ve V 98 20 20 02 WN 8. 63 17 17 39 6- 0 85 PH 2. AR 1 MA MG CY TA OF BL ET CY NT SL HI AN A QU 16 07 08 90 30 00 WA Ac ET 72 [...] TE #5 10 91 MG TA B UT 23 07 08 90 30 00 WA Ac OP 15 -0 -0 .0 00 L- ti RA 50 6- 4- 00 07 MA ve NO 11 20 20 49 RT LO 00 17 17 24 L 1 57 PH 10 AR MA MG CY TA #5 BL 91 ET AL 00 07 08 90 30 00 WA Ac UT 22 -0 -0 .0 00 L- ti AZ 82 6- 4- 00 04 MA ve OL 02 20 20 53 RT AM 95 17 17 05 0 83 PH 0. AR 5 MA MG CY TA #5 BL 91 ET SE 68 07 08 30 30 00 WA Ac RT 64 -0 -0 .0 00 L- ti RA 50 6- 4- 00 07 MA ve LI 52 20 20 49 RT NE 35 17 17 24 4 65 PH HC AR L MA 10 CY 0 MG #5 91 TA BL ET GA 00 07 08 90 30 00 WA Ac BA 22 -0 -0 .0 00 L- ti PE 82 6- 4- 00 04 MA ve NT 63 20 20 53 RT IN 71 17 17 08 1 97 PH 80 AR 0 MA MG CY TA #5 BL 91 ET ME 31 06 07 15 5 00 WA Ac TH 72 -2 -2 .0 00 L- ti OC 20 3- 1- 00 07 MA ve AR 53 20 20 49 RT BA 30 17 17 53 MO 1 24 PH L AR 50 MA 0 CY MG #5 TA 91 BL ET ME 59 06 07 21 6 00 WA Ac TH 74 -2 -2 .0 00 L- ti YL 60 3- 1- 00 07 MA ve UT 00 20 20 49 RT ED 10 17 17 53 NI 3 26 PH SO AR LO MA NE CY 4 #5 MG 91 DO SE PK NA 65 06 07 10 5 00 WA Ac UT 16 -2 -2 .0 00 L- ti OX 20 3- 1- 00 07 MA ve EN 19 20 20 49 RT 01 17 17 53 50 1 27 PH 0 AR MG MA CY TA BL #5 ET 91 GA 00 06 07 90 30 00 WA Ac BA 22 -0 -0 .0 00 L- ti PE 82 8- 7- 00 07 MA ve NT 63 20 20 49 RT IN 71 17 17 24 1 26 PH 80 AR 0 MA MG CY TA #5 BL 91 ET AL 00 06 07 90 30 00 UT Ac UT 22 -0 -0 .0 00 L- ti AZ 82 8- 7- 00 04 MA ve OL 02 20 20 53 RT AM 95 17 17 05 0 83 PH 0. AR 5 MA MG CY TA #5 BL 91 ET QU 16 06 07 90 30 00 UT Ac ET 72 -0 -0 .0 00 L- ti IA 90 8- 7- 00 07 MA ve PI 14 20 20 49 RT NE 60 17 17 24 1 39 PH FU AR MA MA RA CY TE #5 50 91 MG TA B UT 23 06 07 90 30 00 UT Ac OP 15 -0 -0 .0 00 L- ti RA 50 8- 7- 00 07 MA ve NO 11 20 20 49 RT LO 00 17 17 24 L 1 57 PH 10 AR MA MG CY TA #5 BL 91 ET SE 68 06 07 30 30 00 WA Ac RT 64 -0 -0 .0 00 L- ti RA 50 8- 7- 00 07 MA ve LI 52 20 20 49 RT NE 35 17 17 24 4 65 PH HC AR L MA 10 CY 0 MG #5 91 TA BL ET AM 68 06 07 30 30 00 WA Ac LO 64 -0 -0 .0 00 L- ti DI 50 8- 7- 00 07 MA ve PI 51 20 20 49 RT NE 65 17 17 24 4 68 PH BE AR SY MA LA CY TE #5 10 91 MG TA B HY 00 06 06 30 [address] 40 -0 -[address] ti OC 60 7- 0- 00 00 SI ve OD 12 20 20 49 DE ON 30 17 17 03 -A 5 80 PH CE AR TA MA NE CY NO PH OF EN CY NT 5- HI 32 AN 5 A IN C GA 16 11 09 90 30 00 EA Ac BA 71 -1 -[address] ti PE 40 0- 2- 00 00 SI ve NT 33 20 20 48 DE IN 00 17 17 68 2 61 PH 60 AR 0 MA MG CY TA OF BL CY ET NT HI AN A IN C QU 16 05 30 00 EA Ac ET 71 -0 -[address] ti IA 40 8- 2- 00 00 SI ve PI 45 20 20 48 DE NE 30 17 17 65 1 53 PH FU AR MA MA RA CY TE OF 50 CY NT MG HI AN TA A B IN C AL 67 05 90 30 00 EA Ac UT 25 -1 -[address] ti AZ 30 0- 2- 00 00 SI ve OL 90 20 20 48 DE AM 11 17 17 68 1 57 PH 0. AR 5 MA MG CY TA OF BL CY ET NT HI AN A IN C DI 00 04 05 60 [...] BL HI ET AN A IN C UT 50 04 05 90 30 00 EA Ac OP 11 -2 -[address] ti RA 10 6- 9- 00 00 SI ve NO 46 20 20 48 DE LO 70 17 17 50 L 3 60 PH 10 AR MA MG CY TA OF BL CY ET NT HI AN A IN C AL 67 04 05 90 30 00 EA Ac UT 25 -1 -[address] ti [...] HI BL AN ET A IN C AM 00 03 04 [...] 03 04 60 30 00 EA Ac UT 78 -0 -[address] ti AZ 11 9- 7- 00 00 SI ve OL 07 20 20 47 DE AM 91 17 17 90 1 0 87 PH AR MG MA CY TA BL OF ET CY NT HI AN A IN C GA 67 03 04 60 30 00 EA Ac BA 87 -0 -[address] ti PE 70 9- 7- 00 00 SI ve NT 22 20 20 47 DE IN 40 17 17 90 5 88 PH 40 AR 0 MA MG CY CA OF PS CY UL NT E HI AN A IN C UT 50 03 04 90 30 00 EA [...] HI AN A IN C GA 67 02 03 60 30 00 EA Ac BA 87 -0 -[address] ti PE 70 9- 0- 00 00 SI ve NT 22 20 20 47 DE IN 30 17 17 55 5 35 PH 30 AR 0 MA MG CY CA OF PS CY UL NT E HI AN A IN C UT 50 02 03 60 30 00 EA [...] 02 03 60 30 00 EA Ac UT 78 -0 -[address] ti [...] L 50 0 MG TA BL ET UT 00 02 03 20 5 00 CL Ac OM 59 -1 -1 .0 00 IN ti ET 15 0- 0- 00 00 IC ve HEWITT 30 20 20 42 ZI 71 17 17 18 PH NE 0 50 AR MA 25 CY MG TA BL ET AL 00 01 02 42 14 00 EA Ac UT 78 -2 -[address] ti [...] CY NT HI AN A IN C AL 00 01 02 42 14 00 EA Ac UT 78 -1 -[address] ti [...] CY NT HI AN A IN C UT 65 01 02 20 5 00 EA Ac OM 16 -1 -[address] ti ET 20 7- 0- 00 00 SI ve HEWITT 52 20 20 47 DE ZI 11 17 17 27 NE 1 75 PH AR 25 MA CY MG OF TA CY BL NT ET HI AN A IN C DI 00 [...] 01 02 20 10 00 EA Ac UT 71 -1 -[address] ti OF 40 2- 0- 00 00 SI ve LO 65 20 20 47 DE XA 20 17 17 22 CI 4 47 PH N AR HC MA L CY 50 0 OF MG CY NT TA HI B AN A IN C ESPINOZA 53 12 [...] 12 01 28 14 00 EA Ac UT 78 -2 -[address] ti [...] HI AN TA A B IN C ET 00 12 01 20 [...] -3 HI 25 AN A IN C UT 50 12 01 60 30 00 EA Ac OP 11 -2 -[address] ti RA 10 1- 3- 00 00 SI ve NO 46 20 20 46 DE LO 70 16 17 97 L 3 77 PH 10 AR MA MG CY TA OF BL CY ET NT HI AN A IN C AM 68 12 01 14 [...] BL HI ET AN A IN C UT 50 12 01 28 14 00 EA Ac OP 11 -0 -[address] ti RA 10 8- 9- 00 00 SI ve NO 46 20 20 46 DE LO 70 16 17 81 L 3 47 PH 10 AR MA MG CY TA OF BL CY ET NT HI AN A IN C UT 68 12 01 20 5 00 CL [...] IN MG C CA PS UL E UT 68 01 04 01 40 10 HO 99 CA Ac OM 38 -1 -2 .0 PK 20 MP ti ET 20 6- 3- 00 IN 12 BE ve HEWITT 04 20 20 S LL ZI [address] MAXWELL 1 UG BE RR 25 CO Y A MG IN C TA BL ET EN 60 03 04 00 20 3 HO 99 CL Ac DO 95 -2 -0 .0 PK 42 AR ti CE 10 7- 9- 00 IN 15 KE ve T 60 20 20 S 5- [address] CLIFFORD 32 5 UG RE 5 K TA CO J BL ET IN C 49 03 04 00 60 30 HO 99 CL Ac 88 -2 -0 .0 PK 42 AR ti 40 7- 9- 00 IN 14 KE ve 54 20 20 S [address] CLIFFORD 0 UG RE K CO J IN C OX 00 03 03 00 [...] CO J PL ET IN C FL 50 03 03 00 30 30 HO 99 CL Ac UO 11 -0 -1 .0 PK 34 AR ti XE 10 6- 2- 00 IN 34 KE ve TI 64 20 20 S NE [address] CLIFFORD 1 UG RE HC K L CO J 10 IN MG C CA PS UL E FL 00 03 03 00 1. 1 HO 99 CL Ac UC 17 -0 -1 00 PK 34 AR ti ON 25 6- 2- 0 IN 32 KE ve AZ 41 20 20 S OL [address] MADDOX 9 UG RE 15 K 0 CO J MG IN TA C BL ET 00 03 03 00 30 30 HO [...] TM P CO EY E IN DR Ximena OP S PE 00 02 02 00 [...] UG RE K CO J IN C TR 65 02 02 00 30 5 HO 99 CL Ac AM 16 -1 -2 .0 PK 27 AR ti AD 20 2- 6- 00 IN 14 KE ve OL 62 20 20 S [address] VO 1 UG RE L K 50 CO J MG IN C TA BL ET ME 59 02 02 00 1. 90 CL 18 CL Ac 76 -1 -2 00 IN 74 AR [...] 0 CY J MG TA BL ET FL 50 01 02 00 30 30 HO 99 CL Ac UO 11 -3 -1 .0 PK 23 AR ti XE 10 0- 2- 00 IN 36 KE ve TI 64 20 20 S NE [address] CLIFFORD 1 UG RE HC K L CO J 10 IN MG C CA PS UL E IB 55 01 02 00 40 10 CV 49 CA Ac UP 11 -2 -1 .0 S 96 MP ti RO 10 4- 2- 00 PH 91 BE ve FE 68 20 20 AR LL N 40 09 09 MA 80 5 CY BE 0 RR MG #3 Y 01 A TA 6 BL ET OX 00 01 02 00 [...] BE RR #3 Y 01 A 6 TR 65 01 02 00 30 7 SO 30 Ac AM 16 -2 -1 .0 PE 43 LL ti AD 20 8- 2- 00 RS 34 AF ve OL 62 20 20 LO 71 09 09 FA R HC 1 NE OS L LY IA [address] M MG UG TA BL ET 49 01 02 00 40 13 HO 99 CL Ac 88 -3 -1 .0 PK 23 AR ti 40 0- 2- 00 IN 37 KE ve 77 20 20 S [address] CLIFFORD 5 UG RE K CO J IN C [place] 50 01 01 00 6. 5 [...] M ET HEWITT SO NE CR M UT 68 01 01 00 40 10 HO [...] AR OS MA IA CY S M [place] 00 11 12 00 6. 5 [...] M 0 C MG TA BL ET 60 11 12 00 24 12 CA [...] LE LO 43 08 08 R 5 OS UG IA S IN M C Procedures Procedure DOS Code Location Performer Comment LAPAROSCO 5451 [facility] PIC LYSIS 9 [facility] OF INC INC PERITONEA L ADHESIONS OTH BILAT 2283 [facility] ENDO 9 [facility] DESTRUC/O INC INC CCLUSION FALLOP TUBES LOW 741 [facility] CERVICAL 9 [facility] SECTION Encounters Encounter Start End Date Code Location Performer Type Date HOSPITAL JESUS - 7 7 [facility] OUTPATIEN [facility] JESUS - 7 7 [facility]ES[facility] - 7 7 [facility] JES[facility] - 7 7 [facility] JESUS - 7 7 [facility] JES[facility] - 7 7 [facility] JESUS - 7 7 [facility] JESUS - 7 7 [facility] - 7 7 [facility] JESUS - 7 7 [facility]PATI[facility] JESUS - 7 7 [facility] OUTPATIEN [facility] JESUS - 7 7 [facility] JESUS - 7 7 [facility] JESUS - 7 7 [facility] JESUS - 7 7 [facility] JESUS - 6 6 [facility] OUTPATIEN [facility] JESUS - 6 6 [facility] OUTPATIEN [facility] JESUS - 6 6 [facility] OUTPATIEN [facility] JESUS - 6 6 [facility] OUTPATIEN [facility] JESUS - 6 6 [facility] JESUS - 6 6 [facility] OUTPATIEN [facility] JESUS - 6 6 [facility] JESUS - 6 6 [facility] - 6 6 [facility] JESUS - 6 6 [facility] JESUS - 6 6 [facility] JESUS - 6 6 [facility] JES[facility] - 6 6 [facility] JESUS - 5 5 [facility] JESUS - 5 5 [facility] JESUS - 9 9 [facility] JESUS - 9 9 [facility] [place] [id number] [facility] [place] [address] 9 [facility] [place] [address] 8 [facility]
--- OUTSIDE RECORDS SUMMARY | 2017-06-04 21:53 | External Medical Summary Rpt | CCD ---
Author Author , RIGOBERTO Organization RIGOBERTO Address Unknown Phone [email or web address] Care Team Providers Care Wire Stretcher Name Role Phone [employer] Unavailable Unavailable INC, [employer] JOSSY PARIKH, KATI, Unavailable Unavailable BENSON DAVIS Unavailable Unavailable [facility] Unavailable Unavailable [facility], [facility] BRIAN RIVERA, Unavailable Unavailable BRIAN RIVERA [facility], Unavailable Unavailable [facility] JONES MILES, Unavailable Unavailable JONES [facility], Unavailable Unavailable [facility], Unavailable Unavailable [facility] Unavailable Unavailable [place], [facility] Unavailable Unavailable [facility][id number], Unavailable Unavailable [id number] [facility] Unavailable Unavailable TRANSP[facility]ATION [facility], [facility] Un[facility] Unavailable INC, [facility] Unavailable Unavailable HOSPITAL P, [facility], Unavailable Unavailable [facility], Unavailable Unavailable [facility] ARNAV MCNALLY Unavailable Unavailable [facility] Unavailable [facility], [facility] Unavailable Unavailable HOLD[facility], [facility] SHAILESH CASH Unavailable Unavailable SHAILESH LOW, Unavailable Unavailable LAURA KIM, Unavailable Unavailable LAURA METZGER ROBERT, Unavailable Unavailable EMILIANO VALENCIA [facility] Unavailable Unavailable AMBULANCE SE, [facility] NICHOLAS, Unavailable Unavailable NICHOLAS VALDES EVELYN [facility] Unavailable [facility]available [facility] KALEN RIVAS MD Unavailable Unavailable CONSULTING SERVKALEN MD CONSULTING SERV [facility], Unavailable [facility]available [facility] Unavailable Unavailable LAB, [facility]Y [facility], Unavailable Unavailable [facility], [facility] Unavailable Unavailable EMERGENCY PHYS, [facility], [facility]YS [facility] Unavailable Unavailable [facility] THANIA LUI, Unavailable Unavailable THANIA LUI [facility], Unavailable Unavailable [facility] Purpose Continuity of Care Document - 05-10-2008 through 2016 Problems Code Diagnosis DOS Provider Status Z0100 ENCOUNTER 04-16-2017 [facility] EXAM EYES & VISION W/O ABNORMAL FIND R69 ILLNESS 03-05-2017 [facility] UNSPECIFIED TRANSPORTAT ION SER L600 INGROWING 02-17-2017 [facility] NAIL PHYSICIANS GROUP Q01962 PAIN IN 01-27-2017 [facility] H5906PU SPRAIN 01-27-2017 [facility] UNSPECIFIED [facility] SITE RT INC KNEE INITIAL ENCNTR [id number] UNS INJURY 01-27-2017 [facility] RT LOWER MEDICAL LEG INITIAL IMAGING ASS ENCOUNTER M542 CERVICALGIA 01-02-2017 [facility] INC M545 LOW BACK 01-02-2017 [facility] PAIN [facility] INC M791 MYALGIA 01-02-2017 [facility], [facility] G541 LUMBOSACRAL 12-30-2016 [facility] PLEXUS [facility] DISORDERS INC J29829 PAIN IN 12-30-2016 [facility] RIGHT LEG [facility] INC H77199 PAIN IN 12-27-2016 [facility]IP [facility] R200 ANESTHESIA 12-27-2016 [facility] OF SKIN [facility] R0781 PLEURODYNIA 12-11-2016 [facility] R079 CHEST PAIN 12-07-2016 [facility]PEC[facility] [id number] CONTUSION 12-07-2016 [facility] LEFT FRONT PHYSICIANS, WALL THORAX [facility] INITIAL ENC M461 SACROILIITI 11-04-2016 [facility] S NOT [facility] ELSEWHERE INC CLASSIFIED [id number] MUSCLE 10-22-2016 [facility] WASTING & PHYSICIANS ATROPHY NEC GROUP RIGHT THIGH E18461 MUSCLE 10-22-2016 [facility] WASTING & PHYSICIANS ATROPHY NEC GROUP RIGHT LOWER LEG H92059 OTHER LONG 10-15-2016 [facility] TERM [facility] CURRENT INC DRUG THERAPY G94118 PAIN IN 10-05-2016 [facility] LEFT ANKLE [facility] INC M5412 RADICULOPAT 09-30-2016 [facility] HY CERVICAL [facility] REGION INC M5416 RADICULOPAT 09-30-2016 [facility] HY LUMBAR [facility] REGION INC M5431 SCIATICA 09-12-2016 [facility] RIGHT SIDE PHYSICIANS GROUP M549 DORSALGIA 09-12-2016 [facility] UNSPECIFIED PHYSICIANS GROUP R350 FREQUENCY 09-12-2016 [facility] MICTURITION INC R102 PELVIC AND 08-16-2016 [facility] PERINEAL PHYSICIANS PAIN GROUP I10 ESSENTIAL 07-20-2016 [facility] PRIMARY [facility] HYPERTENSIO INC N R25566 PAIN IN 07-20-2016 [facility] M533 SACROCOCCYG 07-20-2016 [facility] EAL [facility]ICAL DISORDERS IMAGING ASS NEC N3000 ACUTE 07-20-2016 [facility] CYSTITIS [facility] WITHOUT INC HEMATURIA Y171ZQA CONTUSION 07-20-2016 [facility] LOWER BACK [facility] & PELVIS INC INITIAL ENCOUNTER W7732VN CONTUSION 07-20-2016 [facility] OF LEFT HIP [facility] INITIAL INC ENCOUNTER Z720 TOBACCO USE 07-20-2016 [facility] INC Z22389 PAIN IN 07-04-2016 [facility]KLE [facility] V56978 PAIN IN 07-04-2016 [facility] FOOT [facility] N390 URINARY 07-04-2016 [facility] INFECTION INC SITE NOT SPECIFIED V80248F UNSPECIFIED 07-04-2016 [facility] INJ[facility]Y [facility] RIGHT ANKLE IMAGING ASS INITIAL ENCOUNTER Q55340I UNSPECIFIED 07-04-2016 [facility] IN[facility] RIGHT FOOT IMAGING ASS INITIAL ENCOUNTER D59171 PAIN IN 06-27-2016 [place] [facility] LOWER MEDICAL LEG IMAGING ASS E876 HYPOKALEMIA 06-15-2016 [facility] W61936 EPILEPSY 06-15-2016 [facility] UNS NOT N EMERGENCY INTRACT W/O PHYS STATUS EPILEPTICUS R569 UNSPECIFIED 06-15-2016 [facility] CONVULSIONS AMBULANCE SE H7670FH TOXIC 06-15-2016 [facility] SUBSTANCE AMBULANCE UNDET SE INITIAL ENCNTR R2241 LOCALIZED 06-08-2016 [facility] RIGHT LOWER LIMB M1645OW UNS OCC OTH 06-08-2016 [facility] MV INJ NT ACC INIT I64216 ACUTE EMBO 06-07-2016 [facility] THROMB UNS PHYSICIANS DEEP VEINS GROUP UNS LOW EXTREM R600 LOCALIZED 06-07-2016 [facility] EDEMA PHYSICIANS GROUP R209 UNSPECIFIED 06-02-2016 [facility], DISTURBANCE PLLC S OF SKIN SENSATION R233 SPONTANEOUS 06-02-2016 [facility] ECCHYMOSES PHYSICIANS, PLLC R51 HEADACHE 06-02-2016 [facility] F0614VK CONTUSION 06-02-2016 [facility] OTHER PART PHYSICIANS, OF HEAD [facility] INITIAL ENCOUNTER T95356B UNSPECIFIED 06-02-2016 [facility] SPRAIN PHYSICIANS, RIGHT HIP [facility] INITIAL ENCOUNTER W05961W UNSPECIFIED 06-02-2016 [facility] IN[facility] RIGHT HIP IMAGING ASS INITIAL ENCOUNTER N800 ENDOMETRIOS 05-06-2016 [facility] OF [facility] UTERUS N920 EXCESS & 05-06-2016 [facility] FREQUENT PHYSICIANS MENSTRUATIO GROUP N W/REGULAR CYCLE N938 OTHER SPEC 05-06-2016 [facility]ITY ABNORMAL ANESTH OF UTERINE & THE BLUE VAGINAL BLEEDING N9410 UNSPECIFIED 05-06-2016 [facility] DYSPAREUNIA [facility] P N944 PRIMARY 05-06-2016 [facility] DYSMENORRHE PHYSICIANS A GROUP N946 DYSMENORRHE 05-06-2016 [facility] UNSPECENDLESS [facility] P Y84396 CALCIFIC 05-03-2016 [facility] TENDINITIS PHYSICIANS, RIGHT UPPER 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 CHRONIC 04-04-2016 ARNOLD LEN PAIN SYNDROME N831 CORPUS 04-03-2016 [facility] LUTEUM CYST PHYSICIANS GROUP N926 IRREGULAR 04-03-2016 [facility] MENSTRUATIO MEM HOS[facility] N INC UNSPECIFIED N941 DYSPAREUNIA 04-03-2016 [facility] PHYSICIANS GROUP K589 IRRITABLE 03-13-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 GROUP WITHOUT DIARRHEA K5900 CONSTIPATIO 03-13-2016 [facility] N PHYSICIANS UNSPECIFIED GROUP K5730 DIVERTICULO 02-21-2016 [facility] SIS LG MEDICAL INTEST W/O IMAGING ASS PERF/ABSC W/O BLEED N8320 UNSPECIFIED 02-21-2016 [facility] OVARIAN MEDICAL CYSTS IMAGING ASS N888 OTH SPEC 02-21-2016 [place] NONINFLAMMA MEDICAL TORY IMAGING ASS DISORDERS CERVIX UTERI R1084 GENERALIZED 02-21-2016 [facility] ABDOMINAL PHYSICIANS, PAIN PLLC R140 ABDOMINAL 02-21-2016 [facility] DISTENSION MEDICAL GASEOUS IMAGING ASS R109 UNSPECIFIED 02-20-2016 [facility] ABDOMINAL [facility] PAIN INC R197 DIARRHEA 02-20-2016 [facility] UNSPECIFIED PHYSICIANS, PLLC Z5329 PROC & [place] 02-20-2016 [facility] NOT CARRIED [facility] OUT INC PATIENTS OTH REASON G959 DISEASE OF 01-24-2016 [facility] UNSPECIFIED M5032 OTH CERV 01-24-2016 [facility] [place] [facility] DEGENERATIO N MID-CERVICA L REGION M546 PAIN IN 01-24-2016 [facility] [place] THORACIC RADI[facility] SPINE V019HFS FRACTURE 01-23-2016 ARNOLD LEN NASAL BONES INITIAL ENCOUNTER CLOSED FX J3489 OTHER 01-19-2016 [place] SPECIFIED MEDICAL DISORDERS IMAGING ASS NOSE AND NASAL SINUSES R1310 DYSPHAGIA 08-31-2015 [facility] UNSPECIFIED [facility] INC A63641 CELLULITIS 07-27-2015 [facility] OF PHYSICIANS, ABDOMINAL PLLC WALL K439 VENTRAL 07-18-2015 [facility] HERNIA PHYSICIANS WITHOUT GROUP OBSTRUCTION OR GANGRENE R1011 RIGHT UPPER 06-26-2015 [facility] QUADRANT [facility]ICAL PAIN IMAGING ASS R1900 INTRA-ABD & 06-26-2015 [place] PELVIC MEDICAL SWELLING IMAGING ASS [place] UNS SITE R1909 OTH 06-26-2015 [facility] INTRA-ABD & [facility] PELVIC INC SWELLING [place] R1905 PERIUMBILIC 06-15-2015 [facility] SWELLING PHYSICIANS MASS OR GROUP LUMP M797 FIBROMYALGI 05-15-2015 [facility] A [facility] INC E60472 PAIN IN 04-07-2015 [place] LEFT MEDICAL SHOULDER IMAGING ASS G5867ZJ CONTUSION 04-07-2015 [facility] THORAX PHYSICIANS, UNSPECIFIED PLLC INITIAL ENCOUNTER T382DZP UNSPECIFIED 04-07-2015 [place] INJURY OF MEDICAL THORAX IMAGING ASS INITIAL ENCOUNTER C7671RO UNS INJURY 04-07-2015 [place] LT SHOULDER MEDICAL UPPER ARM IMAGING ASS INITIAL ENCNTR V5869 LONG-TERM 12-29-2014 [facility] (CURRENT) PHYSICIANS USE OF [place] OTHER MEDICATIONS 3670 HYPERMETROP 12-16-2014 SHAILESH [place] GRE 34468 OTHER 11-25-2014 SHAILESH VISUAL GRE DISTORTIONS AND ENTOPTIC PHENOMENA 50537 PUNCTATE 11-25-2014 SHAILESH KERATITIS GRE 97186 PAIN IN OR 11-25-2014 SHAILESH AROUND EYE GRE 58236 PRECORDIAL 11-11-2014 KALEN RIVAS PAIN CONSULTING SERV 13689 CHEST PAIN 07-18-2014 [facility] [place] UNSPECIFIED RADIOLOGY 7242 LUMBAGO 03-08-2014 [facility] 5990 URINARY 10-15-2013 JOSÉ MIKE TRACT INFECTION SITE NOT SPECIFIED 51191 ABDOMINAL 10-15-2013 JOSÉ MIKE PAIN, PERIUMBILIC V720 EXAMINATION 10-15-2013 SHAILESH OF EYES GRE AND VISION 75405 ABDOMINAL 09-30-2008 WOMEN'S PAIN, LEFT HEALTH UPPER CLINIC OF QU[facility]ANT [facility] 6146 PELVIC 09-16-2008 [facility] PERITONEAL [facility] ADHESIONS, INC FEMALE 62601 ABDOMINAL 09-16-2008 [facility] PAIN RIGHT [facility] LOWER INC QUADRANT V252 STERILIZATI 09-16-2008 WOMEN'S ON HEALTH CLINIC OF [facility] V2509 OTH GENERAL 09-15-2008 [facility] CNSL&ADVICE INC CONTRACEPT MANAGEMENT V242 ROUTINE 09-14-2008 WOMEN'S HEALTH FOLLOW-UP CLINIC OF [facility] V7231 ROUTINE 09-14-2008 WOMEN'S GYNECOLOGIC HEALTH AL CLINIC OF EXAMINATION [facility] 13845 DENTAL 08-26-2008 EMILIANO VALENCIA DMD EXTENDING PSC INTO DENTINE V2549 SURVEILLANC 08-16-2008 WOMEN'S E OTH PREV [facility]ALTH [facility] CLINIC OF CONTR[facility]PT [facility] 7634 FETUS OR 07-29-2008 [facility] AFFECTED BY SPECIALISTS [facility] DELIVERY 13718 COMPL L&D 07-29-2008 [facility] FETUS/NB SPECIALISTS [facility] PASSAGE DUR DEL V3000 SINGLE 07-29-2008 MARILYN RIVERA [facility] W/O V3001 SINGLE 07-29-2008 [facility] SPECIALISTS DELIV BY [facility] V502 ROUTINE OR 07-29-2008 KAMRYN RIVERA CIRCUMCISIO N 75952 PLACENTA 07-27-2008 [facility] WITHOUT HEMORRHAGE WITH DELIVERY 02175 OTHER SPEC 07-27-2008 [facility] COMPLICATIO [facility] N W/DELIVERY 34046 TOBACCO USE 07-27-2008 [facility] D/O COMP [facility] PG CHILDBIRTH/ PP DELIVERED 77701 PREV C/S 07-27-2008 [facility] DELIV DELIV ANESTHESIA W/WO PSC MENTION ANTPRTM COND 41025 PREVIOUS 07-27-2008 MIGUEL C-SECT TORRES A DELIVERY ANTPRTM COND/COMP 50814 INFECTION 07-27-2008 NEW OF AMNIOTIC [facility] PSC DELIVERED 04950 C/S DELIV 07-27-2008 M[facility]EL W/O INDICAT TORRES A DELIV W/WO ANTPRTM COND V237 INSUFFICIEN 07-27-2008 [facility] T [facility] CARE V270 OUTCOME OF 07-27-2008 NEW DELIVERY [facility] PSC LIVEBORN 75517 TOB USE D/O 07-22-2008 M[facility]EL COMP PG TORRES A /PP ANTEPARTM COND/COMP V2389 SUPERVISION 07-22-2008 MIGUEL, OF OTHER TORRES A HIGH-RISK V284 07-22-2008 M[facility]EL [place] [address] LATE 07-20-2008 [facility] VOMITING OF EAST ANTEPARTUM 55540 OTH CURRENT 07-20-2008 [facility] MAT CONDS [facility] CLASSIFIABL E ELSW ANTPRTM 04273 DIARRHEA 07-20-2008 [facility] EAST 462 ACUTE 07-19-2008 [place], PHARYNGITIS THANIA Barrera 85297 THREATENED 07-04-2008 [facility] PREMATURE [facility] LABOR ANTEPARTUM 54219 UNSPEC 06-16-2008 MIGUEL, HEMORRHAGE TORRES A EARLY ANTEPARTUM 52941 OTHER 06-16-2008 MIGUEL, SPECIFED TORRES A COMPLICATIO N ANTEPARTUM 29864 UNS 06-16-2008 MIGUEL, ABNORM MGMT TORRES A MOTH ANTPRTM COND/COMP V221 SUPERVISION 06-16-2008 PATHOLOGY & OF OTHER CYTOLOGY NORMAL LAB 4659 ACUTE URIS 05-31-2008 [place], OF THANIA M UNSPECIFIED SITE 48124 ABNORMAL 05-27-2008 LAB [facility] [employer] TOLERANCE ANTEPARTUM 39946 ABNORMAL 05-25-2008 MIGUEL MTRN GLU TORRES A TOLERNC W/DELIV W/CURRENT PPC 71123 HEMORRHAGE 05-10-2008 MIGUEL, FROM TORRES A PLACENTA [...] 09 10 30 30 00 WA Ac ME 22 -2 -2 .0 00 [...] ME 23 09 10 90 30 00 WA [...] CY TA #5 BL 91 ET ME 23 08 09 90 30 00 [...] AL 00 06 07 90 30 00 [place] Ac ME 22 -0 -0 .0 00 L- ti AZ 82 8- 7- 00 04 MA ve OL 02 20 20 53 RT AM 95 17 17 05 0 83 PH 0. AR 5 MA MG CY TA #5 BL 91 ET QU 16 06 07 90 30 00 IL Ac ET 72 -0 -0 .0 00 L- ti IA 90 8- 7- 00 07 MA ve PI 14 20 20 49 RT NE 60 17 17 24 1 39 PH FU AR MA MA RA CY TE #5 50 91 MG TA B ME 23 06 07 90 30 00 IL Ac OP 15 -0 -0 .0 00 [...] 5 80 PH CE AR TA MA TX CY NO PH OF EN CY NT [...] 67 05 90 30 00 EA Ac ME [...] HI AN A IN C ME 50 02 03 60 30 00 [...] 71 09 09 FA R HC 1 TX OS L LY IA [address] [...] M ET HEWITT SO NE CR M ME 68 01 01 00 40 10 [...] INC INC PERITONEA L ADHESIONS OTH BILAT 0762 [facility] L[facility] ENDO 9 [facility] DESTRUC/O INC INC CCLUSION FALLOP TUBES LOW 741 [facility] CERVICAL 9 [facility] SECTION Encounters Encounter Start End Date Code Location Performer Type Date HOSPITAL [facility] - 7 7 [facility] - 7 7 [facility] J[facility] - 7 7 [facility] - 7 7 [facility] - 7 7 [facility] - 7 7 [facility] - 7 7 [facility] - 7 [facility] - 7 7 [facility] - 7 7 [facility]PATI[facility] - 7 7 [facility] - 7 7 [facility] - 7 7 [facility] - 7 7 [facility] JESUS - 6 6 [facility] OUTPATIEN [facility] JESUS - 6 6 [facility] OUTPATI[facility]ES[facility] - 6 6 [facility]PATI[facility] JES[facility] - 6 6 [facility] - 6 6 [facility] - 6 6 [facility] - 6 6 [facility] - 6 6 [facility] 6 [facility] - 6 6 [facility] - 6 6 [facility] - 6 6 [facility] - 6 6 [facility] - 5 5 [facility] - 5 5 [facility] - 9 9 [facility] - 9 9 [facility] [place] [id number] [facility] [place] [address] [facility] [place] [address] 8 [facility]
--- OUTSIDE RECORDS SUMMARY | 2017-06-04 21:55 | External Medical Summary Rpt | CCD ---
Author Author , RIGOBERTO Organization RIGOBERTO Address Unknown Phone [email or web address] Immunization Name Date Rout CVX Reac Dose Comm Prov Is Faci e tion ent ider Refu lity Give sed n Infl 09-1 150 0.5 Hist [facility] uenz 5-20 mL oric ART5 ART5 a 17 al 91 91 Quad Info Inj rmat ion - Sour ce Unsp ecif ied Infl 09-2 150 0.5 Hist [facility] No [facility] uenz 3-20 mL oric ART4 ART4 a 16 al 93 93 Quad Info Inj rmat ion - Sour ce Unsp ecif ied PPV2 08-0 33 0.5 Hist [facility] No [facility] 3 8-20 mL oric ART4 ART4 16 al 93 93 Info rmat ion - Sour ce Unsp ecif ied Td 07-0 113 0.5 Hist [facility] No [facility] (beata 3-20 mL oric ART4 ART4 lt), 16 al 93 93 Info P-Fr rmat ee ion - Sour ce Unsp ecif ied Tdap 04-1 Intr 115 999 Hist H191 No H191 , 6-20 amus oric Adso 13 cula al rbed r Info rmat ion - Sour ce Unsp ecif ied Hep 12-0 Intr 42 999 Hist H191 No H191 B, 1-19 amus oric adol 99 cula al r Info High rmat Ris ion - Sour ce Unsp ecif ied Hep 06-1 Intr 8 999 Hist H191 No H191 B, 5-19 amus oric ped/ 99 cula al adol r Info rmat ion - Sour ce Unsp ecif ied Td 08-1 Intr 9 999 Hist H191 No H191 (beata 2-19 amus oric lt), 96 cula al r Info adso rmat rbed ion - Sour ce Unsp ecif ied
--- OUTSIDE RECORDS SUMMARY | 2017-06-04 21:55 | External Medical Summary Rpt | CCD ---
Author Author , RIGOBERTO Organization RIGOBERTO Address Unknown Phone [email or web address] Immunization Name Date Rout CVX Reac Dose [...]
--- NOTE | 2017-06-04 21:58 | Emergency Room Report ---
History of Present Illness Time Seen by [id number] Presenting Problem in Triage Pt arrived:Walked Presenting Problem:RHINOPLASTY DONE AT THIS AM; INCREASED PAIN TO NASAL AREA; SURGEON STATE FOR PATIENT TO COME TO LOCAL HOSPITAL IF PAIN GETS UNBEARABLE Onset of symptoms date/time:06/04/17 or onset unknown for: Treatment Prior to Arrival: OXYCODONE 5 MG @ 1929 BUSINESS INFO CONSULTANT Provided by:SELF Sepsis Risk Assessment: Temp: 99.3 B/P: 136/92 MAP: 106 Pulse: 113 Resp: 18 Recent fever? N Clinical Suspician of Infection? N Mental Status: 1 - Regular (Normal Baseline) Sepsis Risk:Possible Sepsis Risk Have you (or family members/close friends) recently traveled outside the [place]? N If Yes, where/when: Have you had exposure to infectious disease within the past month? N TB? Other? Specify: Source patient, RN notes reviewed, family, old records Exam Limitations no limitations Comment pt with recent facial surg this am with inc pain despite pain meds - Cardiac Chest Pain Chest pain indicative of cardiac No Timing/Duration this evening Severity moderate ALLERGIES Coded Allergies: No Known Allergies (12/27/16) Home Medications Reported Medications Propranolol Hcl (Inderal) 10 MG PO TID AMLODIPINE BESYLATE (Norvasc) 10 MG PO DAILY Sertraline Hcl (Zoloft 50MG) 100 MG PO DAILY OXYCODONE HCL (Oxycodone) 5 MG NG Q4HP PRN PAIN SULFAMETHOXAZOLE/TRIMETHOPRIM (Bactrim 400-80 MG Tablet) 1 TAB PO BID Gabapentin (Gabapentin 800MG) VITAMIN B12 (Cyanocobalamin Injection) Vitamin E Mixed (Vitamin E) History Medical History General CAD? No Angina: Yes [place]: No Hypertension? Yes Hyperlipidemia? No CHF? No DVT? No PE? No COPD? No Asthma? No Anemia? No GERD? No Gastric ulcers? No GI Bleed? No Hernia? Yes Thyroid Problems? No Hypothyroidism? No CVA? No Seizures? No Diabetes? No Insulin Dependent: No Insulin Pump: No Home FSBS? No Renal Insuffiency? No End Stage Renal Disease? No UTI? Yes Stones? No BPH? No GB Disease: No Nephritic Syndrome? No Asplenia? No Hepatitis? No Sickle Cell Disease? No Arthritis? No Migraines? No Cataracts? No Glaucoma? No MRSA? No HIV? No TB? No Anxiety? No Depression? Yes Cancer? No More? No Additional hx: BIPOLAR,MANIC DEPRESSION TREMORS, STERNUM FRACTURE Immunization Hx DT/Tetanus 1-4 Years Ago Flu 2016-17FSN Pneumonia Refuses Surgical Hx Previous Surgery?Y X'S 2 RHINOPLASTY X4 LAPARSCOPY X'S 3 TUBAL HERNIA REPAIR HYSTERECTOMY SHEET SEWER Hx LMP N/A Family History Family Hx Diabetes No CAD Yes Hypertension Yes Hyperlipidemia Yes Cancer Yes TB No Social History Smoking Hx Smoker: Current Every Day Smoker Tobacco: Yes Type Cigarettes Packs/day < 1 Pack Alcohol Alcohol: No Drugs none Review of Systems All Other Systems Reviewed and Negative Constitutional denies fever Eyes denies drainage ENT denies: ear pain, epistaxis, throat pain, throat swelling. Respiratory denies cough, denies shortness of breath Cardiovascular denies chest pain, denies syncope Gastrointestinal denies abdominal pain, denies diarrhea, denies vomiting Genitourinary denies: dysuria, frequency, hesitancy, hematuria. Musculoskeletal denies back pain, denies joint pain, denies joint swelling, denies neck pain Skin denies rash Psychiatric/Neurological see HPI, denies headache, denies seizure, other Physical Exam Vital Signs Vital Signs Date Time Temp Pulse Resp B/P Pulse O2 O2 Flow FiO2 Ox Delivery Rate 06/04 2146 18 06/04 2128 99.3 113 20 136/92 98 - WBC >12,000 or <4,000 or 10% bands? 2 or more SIRS Criteria Met? B/P:136/92 MAP:106 Creatinine >2.0? UA output<0.5ml/kg/hr for 2 hrs? Platelet count >100,000? Lactate >2.0mmol/1? INR >1.2 or PTT > than 60 sec? Evidence of Organ Dysfunction? Provider documented clinical suspician of infection? N Sepsis Criteria Count: 2 Sepsis Risk: Possible Sepsis Risk General Appearance no apparent distress Eye Exam - bilateral eye PERRL, bilateral eye EOMI Ear, Nose, Throat s/p nasal surg with paking in place Neck supple Respiratory Status No: respiratory distress. Cardiovascular regular rate/rhythm Peripheral Pulses Pulses normal Yes Extremities normal inspection Strength 4 Upper Ext (L), 4 Upper Ext (R), 4 Lower Ext (L), 4 Lower Ext (R) Neurologic alert, cat driver II-XII nml as tested, no motor/sensory deficits Reflexes Reflexes normal Yes Mental status normal mood/affect Skin intact Medical Decision Making LABS/Meds/Orders Pt receiving controlled substance in ED? No Results/Orders Current Medication Orders Sig/Delaney Start time Last Medication Dose Route Stop Time Status Admin Ketorolac 60 MG ONCE ONE 06/04 2145 DC 06/04 Tromethamine IM 06/04 Ketorolac 0 .STK-MED ONE 06/04 2142 DC Tromethamine .ROUTE Departure Departure Time of Disposition 2158 Disposition DC Home or Self Care(routine) Clinical Impression Primary Impression: Postoperative pain Condition STABLE Patient Instructions DI for Postoperative Pain Additional Instructions call pcp or your surg in am as needed Discharge Counseling Counseled pt/family regarding diagnosis, follow up needs ED Critical Care Critical Care No at 2204
--- NOTE | 2017-06-04 21:58 | Emergency Room Report ---
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 N Clinical Suspician of Infection? N Mental Status: 1 - Regular (Normal Baseline) Sepsis Risk:Possible Sepsis Risk Have you (or family members/close friends) recently traveled outside the [place]? N If Yes, where/when: Have you had exposure to infectious disease within the past month? N TB? Other? Specify: Source patient, RN notes reviewed, family, old records Exam Limitations no limitations Comment pt with recent facial surg this am with inc pain despite pain meds - Cardiac Chest Pain Chest pain indicative of cardiac No Timing/Duration this evening Severity moderate ALLERGIES Coded Allergies: No Known Allergies (12/27/16) Home Medications Reported Medications Propranolol Hcl (Inderal) 10 MG PO TID AMLODIPINE BESYLATE (Norvasc) 10 MG PO DAILY Sertraline Hcl (Zoloft 50MG) 100 MG PO DAILY OXYCODONE HCL (Oxycodone) 5 MG NG Q4HP PRN PAIN SULFAMETHOXAZOLE/TRIMETHOPRIM (Bactrim 400-80 MG Tablet) 1 TAB PO BID Gabapentin (Gabapentin 800MG) VITAMIN B12 (Cyanocobalamin Injection) Vitamin E Mixed (Vitamin E) History Medical History General CAD? No Angina: Yes [place]: No Hypertension? Yes Hyperlipidemia? No CHF? No DVT? No PE? No COPD? No Asthma? No Anemia? No GERD? No Gastric ulcers? No GI Bleed? No Hernia? Yes Thyroid Problems? No Hypothyroidism? No CVA? No Seizures? No Diabetes? No Insulin Dependent: No Insulin Pump: No Home FSBS? No Renal Insuffiency? No End Stage Renal Disease? No UTI? Yes Stones? No BPH? No GB Disease: No Nephritic Syndrome? No Asplenia? No Hepatitis? No Sickle Cell Disease? No Arthritis? No Migraines? No Cataracts? No Glaucoma? No MRSA? No HIV? No TB? No Anxiety? No Depression? Yes Cancer? No More? No Additional hx: BIPOLAR,MANIC DEPRESSION TREMORS, STERNUM FRACTURE Immunization Hx DT/Tetanus 1-4 Years Ago Flu 2016-17FSN Pneumonia Refuses Surgical Hx Previous Surgery?Y X'S 2 RHINOPLASTY X4 LAPARSCOPY X'S 3 TUBAL HERNIA REPAIR HYSTERECTOMY [employer]IST[employer] PRINCIPAL Hx LMP N/A Family History Family Hx Diabetes No CAD Yes Hypertension Yes Hyperlipidemia Yes Cancer Yes TB No Social History Smoking Hx Smoker: Current Every Day Smoker Tobacco: Yes Type Cigarettes Packs/day < 1 Pack Alcohol Alcohol: No Drugs none Review of Systems All Other Systems Reviewed and Negative Constitutional denies fever Eyes denies drainage ENT denies: ear pain, epistaxis, throat pain, throat swelling. Respiratory denies cough, denies shortness of breath Cardiovascular denies chest pain, denies syncope Gastrointestinal denies abdominal pain, denies diarrhea, denies vomiting Genitourinary denies: dysuria, frequency, hesitancy, hematuria. Musculoskeletal denies back pain, denies joint pain, denies joint swelling, denies neck pain Skin denies rash Psychiatric/Neurological see HPI, denies headache, denies seizure, other Physical Exam Vital Signs Vital Signs Date Time Temp Pulse Resp B/P Pulse O2 O2 Flow FiO2 Ox Delivery Rate 06/04 2146 18 06/04 2128 99.3 113 20 136/92 98 - WBC >12,000 or <4,000 or 10% bands? 2 or more SIRS Criteria Met? B/P:136/92 MAP:106 Creatinine >2.0? UA output<0.5ml/kg/hr for 2 hrs? Platelet count >100,000? Lactate >2.0mmol/1? INR >1.2 or PTT > than 60 sec? Evidence of Organ Dysfunction? Provider documented clinical suspician of infection? N Sepsis Criteria Count: 2 Sepsis Risk: Possible Sepsis Risk General Appearance no apparent distress Eye Exam - bilateral eye PERRL, bilateral eye EOMI Ear, Nose, Throat s/p nasal surg with paking in place Neck supple Respiratory Status No: respiratory distress. Cardiovascular regular rate/rhythm Peripheral Pulses Pulses normal Yes Extremities normal inspection Strength 4 Upper Ext (L), 4 Upper Ext (R), 4 Lower Ext (L), 4 Lower Ext (R) Neurologic alert, delivery professional II-XII nml as tested, no motor/sensory deficits Reflexes Reflexes normal Yes Mental status normal mood/affect Skin intact Medical Decision Making LABS/Meds/Orders Pt receiving controlled substance in ED? No Results/Orders Current Medication Orders Sig/Delaney Start time Last Medication Dose Route Stop Time Status Admin Ketorolac 60 MG ONCE ONE 06/04 2145 DC 06/04 Tromethamine IM 06/04 Ketorolac 0 .STK-MED ONE 06/04 2142 DC Tromethamine .ROUTE Departure Departure Time of Disposition 2158 Disposition DC Home or Self Care(routine) Clinical Impression Primary Impression: Postoperative pain Condition STABLE Patient Instructions DI for Postoperative Pain Additional Instructions call pcp or your surg in am as needed Discharge Counseling Counseled pt/family regarding diagnosis, follow up needs ED Critical Care Critical Care No at 2204
[2017-06-04 22:07] VITALS: BP 136/92
== END 2017-06-04 22:22 | disposition home or self-care (01) ==
LOC: ER 21:21
DX: G89.18 Other acute postprocedural pain (principal); J34.89 Other specified disorders of nose and nasal sinuses; Z41.1 Encounter for cosmetic surgery